=== PATIENT | female | born 1930 | race Caucasian/White ===

== ENCOUNTER 2017-01-23 09:17 | Inpatient (IN) | payer MEDICARE, OTHER ==
[2017-01-23] VITALS (8 sets, daily range): BP systolic 145–189; BP diastolic 67–78; PULSE 67–81; RESP 18–22; O2SAT 89–98
[~2017-01-23] VITALS: Wt 56.2 kg
[~2017-01-23 09:17] MED LIST: ALBU2.5V4 INHALATION; CARB1TAB14 PO; CHOL200025 PO; CRAN450T9 PO; D-MA1POW PO; FOSF3PAC PO; HYDR28.484 TOPICAL; LATA2.5D6 BOTH_EYES; LOSA100T29 PO; MELA1TAB11 PO; MEMA14CA PO; NAPR250T PO; NITR1OIN TRANSDERM; PIPE3.376 IV; POLY17PO6 PO; QUET25TA PO; QUET25TA73 PO; RIVA1PAT9 TRANSDERM; TIMO5DRO26 BOTH_EYES; [UNRECOGNIZED DRUG - CODE] IVPUSH
--- NOTE | 2017-01-23 09:23 | ED.REPORT ---
HPI-General Illness Date of Service January 23, 2017 ED Provider: Paz Washington MD The patient is an 86 year old female with history of Parkinson's, dementia, dysphagia, and hypertension, who was brought to the emergency department by EMS for altered mental status that was first noticed this morning around 0930 by her . She was last known normal at 1930 last night. She was speaking, sitting up, and responsive. She has not been able to answer questions. Her states her current status is completely different from her baseline. Medics report she did swat her arm with suctioning. She was admitted in May of 2016 for pneumonia and UTI. POLST form from 05/2016 that is DNR and another one from 09/2015 that shows full code. Nursing Notes Stated Complaint: DECREASE LOC Nursing Notes Reviewed: Yes Allergies: Coded Allergies: meperidine (Verified Allergy, Severe, Hives, 10/03/15) Contrast Media (Verified Allergy, Unknown, possible reaction, 10/03/15) gabapentin (Verified Allergy, Unknown, 10/03/15) Scheduled Carbidopa/Levodopa 25-100 mg (Carbidopa/Levodopa 25-100 mg) 1 Each Tablet 2 EACH PO BID Cholecalciferol (Vitamin D3) (Vitamin D3) 2,000 Unit Tablet 4,000 UNIT PO DAILY Cranberry Fruit (Cranberry) 450 Mg Tablet 450 MG PO BID D-Mannose (D-Mannose) 1 Gm Powder 500 MG PO DAILY Fosfomycin Tromethamine (Monurol) 3 Gm Packet 3 GM PO Q10 days Latanoprost (Latanoprost) 2.5 Ml Drops 1 GTT BOTH_EYES HS Losartan Potassium (Losartan Potassium) 100 Mg Tablet 50 MG PO BID Melatonin/Pyridoxine (Melatonin 3 mg Tablet) 1 Each Tablet 1 EACH PO HS Memantine HCl (Namenda-XR) 14 Mg Cap.spr.24 14 MG PO QAM Nitroglycerin (Nitro-Bid) 1 Gm Oint...g. 2 INCH TRANSDERM DAILY Piperacillin Sodium/Tazobactam (Zosyn 3.375 Gram Vial) 3.375 Gm Vial 3.375 GM IV every 8 hours Polyethylene Glycol 3350 (Miralax) 17 Gm Powd.pack 17 GM PO DAILY Quetiapine Fumarate (Quetiapine Fumarate) 25 Mg Tablet 12.5 MG PO HS Rivastigmine Patch (Exelon Patch) 13.3 Mg Patch 13.3 MG TRANSDERM DAILY Timolol (Betimol) 5 Ml Drops 1 DROP BOTH_EYES QAM Scheduled PRN Albuterol Neb Soln (Albuterol Neb Soln) 2.5 Mg/3 Ml Vial.neb 2.5 MG INHALATION QID PRN PRN For Shortness of Breath Enalaprilat Dihydrate (Enalaprilat Inj) 1.25 Mg/1 Ml Vial 1.25 MG IVPUSH Q6 PRN PRN IF sbp>170 Hydrocortisone (Hydrocortisone) 1 % Cream..g. 1 APPLIC TOPICAL DAILY PRN PRN skin irritation apply to site of exelon patch prn Naproxen (Naproxen) 250 Mg Tablet 250 MG PO TID PRN PRN For Pain Nitroglycerin (Nitro-Bid) 1 Gm Oint...g. 2 INCH TRANSDERM QID PRN PRN For HYPERtension Polyethylene Glycol 3350 (Miralax) 17 Gm Powd.pack 17 GM PO DAILY PRN PRN For Constipation Quetiapine Fumarate (Seroquel) 25 Mg Tablet 12.5 MG PO QID PRN PRN For Agitation General Time Seen by MD: 09:23 Chief Complaint Altered mental status Hx Obtained From: Spouse, EMS Unable to Obtain Hx: Patient condition, Mental status Arrived By: Ambulance Sudden in Onset?: No Onset Occurred: Onset unknown Symptom Duration: Since onset Recent Healthcare: No recent doctor visit, No recent hospitalization Similar Sx Previous: No Past Medical History Past Medical History Notes: CODE STATUS: DNR Past Medical History Glaucoma Parkinson's Overactive bladder Hypertension Dementia GI bleed UTI Normally on honey thick liquids only due to dysphagia Basal cell carcinoma Past Surgical History Bladder suspension Laminectomy Bilateral knee replacement Basal cell carcinoma removal Hip replacement Reports: Hysterectomy, Tonsillectomy Family History Noncontributory Smoking History Former Smoker Social History Lives at [facility] Alcohol Use: Denies alcohol use Drug Use: Denies drug use Other Social History: Good social support, , Local resident Ambulatory Status Walker Review of Systems Unable to Obtain ROS Patient condition, Mental status Physical Exam Vital Signs Vital Signs Date Time Temp Pulse Resp B/P Pulse Ox O2 Delivery O2 Flow Rate FiO2 01/23/17 10:52 69 22 155/71 95 Nasal Cannula 2 01/23/17 09:23 36.4 67 22 164/76 89 Room Air Initial VS: Reviewed ENT: Mucous membranes moist, Conjunctiva normal, No scleral icterus Neck: Supple, Non-tender, Full range of motion Abdomen / GI: Soft, No distention Extremities: No swelling Skin: Warm, Dry Alertness: Positive: Unresponsive Appearance / Presentation: Positive: Cachectic Head / Eyes: Atraumatic, Normocephalic Pupils are pinpoint Respiratory / Chest: No respiratory distress Shallow regular breathing. Shallow ineffective cough. Coarse rhonchi throughout all lung lopes. Cardiovascular: Heart rate NL Heart Sounds / Murmur: Positive: Systolic murmur present.. (III/) Upper Extremities Upper Extremity / MS: Vascular intact Skin tear on her left elbow that is appropriately dressed from custodial. Mental Status: Positive: Unresponsive Maintaining airway at this time. Pill roll tremor. Significant muscle rigidity consistent with her Parkinson's. Interpretation & Diagnostics Lab Results Interpretation Result Diagram: 01/23/17 1015 01/23/17 1015 Test 01/23/17 09:50 01/23/17 09:58 01/23/17 10:15 01/23/17 10:35 Hold Urine Received (Received) Urine Legionella pneumophilia Ag Negative (Negative) Urine Color Yellow (YELLOW) Urine Appearance Turbid (CLEAR,HAZY) Urine pH 7.0 (5.0-8.0) Urine Specific [place] 1.020 (1.003-1.035) Urine Protein 100mg/dL (NEG,TRACE) Urine Glucose (UA) Negativemg/dL (NEGATIVE) Urine Ketones Negativemg/dL (NEGATIVE) Urine Occult Blood Large (NEGATIVE) Urine Nitrite Positive (NEGATIVE) Urine Bilirubin Negative (NEGATIVE) Urine Urobilinogen Normalmg/dL (NORMAL) Urine Leukocyte Esterase Large (NEGATIVE) Urine RBC 11-50/hpf (0-2) Urine WBC >50/hpf (0-5) Urine Epithelial Cells Occasional/hpf (NONE-MOD) Urine Crystals None seen (NONE SEEN) Urine Bacteria Many/hpf (NONE-FEW) Urine Hyaline Casts None/lpf (NONE) Urine Granular Casts None seen (NONE SEEN) Urine Waxy Casts None seen (NONE SEEN) Urine Red Blood Cell Casts None seen (NONE SEEN) Urine White Blood Cell Casts None seen (NONE SEEN) Urine Mucus Present (None Seen) Urine Trichomonas None seen (NONE SEEN) Urine Yeast None (NONE SEEN) Urinalysis Comment None Urine Culture Reflexed Indicated White Blood Count 6.1th/mm3 (3.8-10.1) Red Blood Count 4.63mil/mm3 (3.90-5.20) Hemoglobin 13.8g/dL (12.0-15.6) Hematocrit 40.9% (35.0-46.0) Mean Corpuscular Volume 88.3fL (81-100) Mean Corpuscular Hemoglobin 29.8pg (27.0-35.0) Mean Corpuscular Hemoglobin Concent 33.7% (32.0-37.0) Red Cell Distribution Width 14.4% (12.3-15.4) Platelet Count 211bil/L (150-400) Neutrophils (%) (Auto) 59.2% (40-74) Lymphocytes (%) (Auto) 26.6% (14-46) Monocytes (%) (Auto) 9.4% (4-12) Eosinophils (%) (Auto) 3.5% (0-5) Basophils (%) (Auto) 1.0% (0-3) Sodium Level 139mEq/L (134-144) Potassium Level 3.9mEq/L (3.5-5.2) Chloride Level 104mEq/L (97-108) Carbon Dioxide Level 22mmol/L (18-29) Blood Urea Nitrogen 15mg/dL (8-27) Creatinine 0.51mg/dL (0.57-1.00) Estimat Glomerular Filtration Rate 164mL/min (>59) Glucose Level 103mg/dL (60-99) Calcium Level 9.1mg/dL (8.5-10.1) Total Bilirubin 0.5mg/dL (0.0-1.2) Aspartate Amino Transf (AST/SGOT) 13U/L (0-50) Alanine Aminotransferase (ALT/SGPT) 7U/L (0-32) Alkaline Phosphatase 52U/L (25-165) Troponin T < 0.010ug/L (0.0-0.011) Pro-B-Type Natriuretic Peptide 338.8pg/mL (0-738) Total Protein 6.7g/dL (6.4-8.4) Albumin 3.3g/dL (3.4-5.0) Procalcitonin 0.07ng/mL (0.00-0.08) Lactic Acid Level 1.0mmol/L (0.4-2.0) ECG Interpretation ECG Interpretation: Sinus rhythm with a rate of 59 PAC LPFB No acute ischemic changes Similar to previous taken on 06/06/16 Time: 10:22 Interpreted by: ED physician X-Ray Chest Interpretation Chest Xray Interpretation: IMPRESSION: Mild or early pneumonia likely is present at the left lung base but as noted the patient is rotated and tilted leftward and for this reason atelectasis possibly could be present instead. As discussed above the PICC line from left-sided approach has an atypical course and its exact position is not established by this study. There may be venous anomalous anatomy in this patient, and CT scanning may be warranted to determine the exact anatomy and establish whether the PICC line could possibly be in a potentially harmful position. Dictated by: Jorge Nunez M.D. on 01/23/2017 at 10:35 Interpretation / Wet Read by: Interpret - Radiologist CT Head Interpretation IMPRESSION: No acute intracranial disease process. Dictated by: Citlaly Rosa MD, PhD on 01/23/2017 at 11:35 Study: Head CT no contrast Interpretation / Wet Read by: Interpret - Radiologist Re-Eval/Medical Decision Source of Hx: Old records, EMS, Family Time of Eval: 09:37 Re-Evaluation/Progress Note: Discussed code status with her . The patient is DNR. Time of Eval: 09:45 Re-Evaluation/Progress Note: No change with Narcan. Time of Eval: 12:04 Re-Evaluation/Progress Note: The patient's condition is unchanged. Discussed plan for admission to the hospital with the patient's . He understands and agrees with plan. Consultation : Referral / Consult Name: Drew Eng MD Consulted With: Hospitalist Requested Call at: 12:05 Call Returned at: 12:39 Animal Laboratory Technician: Will see patient, Agrees with eval, Agrees with plan, Accepts admit Counseled Regarding: Diagnosis, Lab results, Need for admission Discharge & Departure Primary Impression: Altered mental status Altered mental status type: unspecified Qualified Code: R41.82 - Altered mental status, unspecified Additional Impressions: UTI (urinary tract infection) Urinary tract infection type: site unspecified Hematuria presence: with hematuria Qualified Code: N39.0 - Urinary tract infection, site not specified Pneumonia Pneumonia type: due to unspecified organism Laterality: left Lung location : lower lobe of lung Qualified Code: J18.1 - Lobar pneumonia, unspecified organism Disposition: ADMITTED TO HOSPITAL Discharge Condition All VS Reviewed: Yes Condition: Stable Referrals: OTHER,PHYSICIAN (PCP) (Family) Scribe Attestation Portions of this note were transcribed by Jackelyn Solis. I, Dr. Washington personally performed the history, physical exam and medical decision-making; I reviewed and confirmed the accuracy of the information in the transcribed note. Signed by: Sindhu Ramos,01/23/2017 at 1300. Paz Washington MD January 23, 2017 09:23 Jackelyn Solis January 23, 2017 09:30
[2017-01-23] MEDS ORDERED: 0.9% Sodium Chloride 1,000 ML IV ONE (10:11)
[2017-01-23] MEDS ORDERED: cefTRIAXone Inj 2,000 MG in Dextrose 5% Minibag Plus 50 ML IV ONE (10:15)
[2017-01-23] MEDS ORDERED: Azithromycin Inj 500 MG in Dextrose 5% w/Vial Mate 250 ML IV ONE (10:15)
[2017-01-23 10:19] LABS: APPEARANCE,URINE TURBID (CLEAR,HAZY); COLOR,URINE YELLOW (YELLOW); OCCULT BLOOD,URINE LARGE (NEGATIVE); UROBILINOGEN,URINE NORMAL (NORMAL)
[2017-01-23 10:22] LABS: EOSINOPHILS % (AUTO) 3.5 % (0-5); MONOCYTES % (AUTO) 9.4 % (4-12); Mean Corpuscular Hemoglobin 29.8 pg (27.0-35.0); Mean Corpuscular Volume 88.3 fL (81-100); NEUTROPHILS % (AUTO) 59.2 % (40-74); Platelet Count 211 bil/L (150-400)
--- NOTE | 2017-01-23 10:41 | DRSVH ---
PROCEDURE: X-RAY CHEST ONE VIEW, PORTABLE ([id number]) INDICATIONS: cough TECHNIQUE: One view of the chest was acquired. COMPARISON: [facility], CR, XR CHEST 1VW (PORTABLE), 11/16/2015, 16:43. [facility], CR, XR CHEST 1VW (PORTABLE), 03/06/2016, 10:26. [facility], CR, XR CHEST 1VW (POR TABLE), 03/28/2016, 12:29. [facility], CR, XR CHEST 1VW (PORTABLE), 06/10/2016, 8:46. [facility], CR, XR CHEST 1VW (PORTABLE), 06/06/2016, 10:02. FINDINGS: Surgical changes and devices: There is a PICC line from a left-sided approach which takes an unusual course that does not definitely overlie the expected course of the superior vena cava. The patient i s tilted and rotated leftward, above the catheter course extends towards the medial left clavicular h ead and then is vertically directed inferiorly and further rightward but then inferiorly again near t he bifurcation of the trachea. Lungs and pleura: No pleural effusions or pneumothorax. Lungs are abnormal with mild stranding of t he retrocardiac left lung and laterally. Mediastinum: Mediastinal contours appear normal. Heart size is normal. Bones and chest wall: No suspicious bony lesions. Overlying soft tissues appear unremarkable. IMPRESSION: Mild or early pneumonia likely is present at the left lung base but as noted the patient is rotated and tilted leftward and for this reason atelectasis possibly could be present instead. As discussed above the PICC line from left-sided approach has an atypical course and its exact positi on is not established by this study. There may be venous anomalous anatomy in this patient, and CT s chio may be warranted to determine the exact anatomy and establish whether the PICC line could pos sibly be in a potentially harmful position. Dictated by: Jorge Nunez M.D. on 01/23/2017 at 10:35 Approved by: Jorge Nunez M.D. on 01/23/2017 at 10:39
[2017-01-23 10:56] LABS: TROPONIN T < 0.010 ug/L (0.0-0.011)
--- NOTE | 2017-01-23 11:38 | DRSVH ---
PROCEDURE: CT BRAIN WITHOUT CONTRAST ([id number]) INDICATIONS: altered mental status TECHNIQUE: Noncontrast 4.5 mm thick angled axial sections acquired from the foramen magnum to the vertex, with c oronal reformats. COMPARISON: [facility], CT, CT BRAIN WO CON, 03/28/2016, 11:32. [facility], CT, BRAIN W/O CONTRAST, 03/31/2015, 17:04. FINDINGS: Image quality: Excellent. CSF spaces: Basal cisterns are patent. No extra-axial fluid collections. The ventricles are symmet mikala in size and shape. Brain: No intracranial bleeds or masses. There is cerebral volume loss for age, with resultant vent ricular and sulcal prominence. There are periventricular and deep white matter chronic small vessel ischemic changes. There is intracranial internal carotid artery atherosclerosis. Skull and face: Calvarium and visualized facial bones appear intact, without suspicious lesions. Sinuses: Visualized sinuses and mastoids are clear. IMPRESSION: No acute intracranial disease process. Dictated by: Citlaly Rosa MD, PhD on 01/23/2017 at 11:35 Approved by: Citlaly Rosa MD, PhD on 01/23/2017 at 11:37
[2017-01-23] MEDS ORDERED: MEMA10TA20 PO (13:11)
[2017-01-23] MEDS ORDERED: D-MA1POW PO (13:11)
[2017-01-23] MEDS ORDERED: CARB1TAB14 PO (13:11)
[2017-01-23] MEDS ORDERED: METO25TA6 PO (13:11)
[2017-01-23] MEDS ORDERED: ASPI-973 PO (13:11)
[2017-01-23] MEDS ORDERED: CITA10TA9 PO (13:11)
[2017-01-23] MEDS ORDERED: Ondansetron 2 mg/mL 2 mL Inj IVPUSH PRN (14:00)
[2017-01-23] MEDS ORDERED: cefTRIAXone Inj 1,000 MG in Dextrose 5% Minibag Plus 50 ML IV SCH (14:00)
[2017-01-23] MEDS ORDERED: Polyethylene Glycol (PEG) 17 Gm Powder PO PRN (14:00)
[2017-01-23] MEDS ORDERED: Azithromycin Inj 500 MG in Dextrose 5% w/Vial Mate 250 ML IV SCH (14:33)
[2017-01-23] MEDS: 0.9% Sodium Chloride 1,000 ML IV SCH (14:49)
--- NOTE | 2017-01-23 15:32 | PCM.HPMED ---
Subjective Date of Service January 23, 2017 Primary Provider: Admitting Physician: Drew Eng MD Primary Care Physician: Traci Solis MD Attending Physician: Drew Eng MD Admit Status: From the Emergency Department, Full Admit, Admit to [facility] Team, [facility] Telemetry Chief Complaint: Pneumonia and urinary tract infection History of Present Illness: History is obtained from , steph. Patient is an 86-year-old female progressive debilitating consist disease and dementia. She has suffered progressive dysphagia and had difficulties with aspiration. She was recently admitted with an aspiration pneumonia. The patient also had a Proteus urine tract infection. Ultimately she was discharged to [facility] and has had a lot of difficulty keeping down adequate fluids. [facility]. She has had a stepwise deterioration was several months. The patient has become more confused and lethargic last 2 days. No reported fevers or chills. She was brought back to the emergency room and found to have evidence of probable recurrent urinary tract infection as well as possible aspiration. She really appears to be unable to drink anything she has not had her Sinemet for a day and a half and appears to be very stiff. She did have palliative care intervention last visit is DNR/DNI. Today when asked if she would want a temporary tube placed for administration of oral medication such as Sinemet he declined. We spent a lot of time focusing on the importance of comfort and the high probability of . He does wish to try IV fluids and antibiotics would cover for aspiration and possible recurrent urinary tract infection overnight. No other history is available. Review of Systems: Review of systems is not obtainable due to her mental status. Allergies Coded Allergies: meperidine (Verified Allergy, Severe, Hives, 10/03/15) Contrast Media (Verified Allergy, Unknown, possible reaction, 10/03/15) gabapentin (Verified Allergy, Unknown, 10/03/15) Home Medications Carbidopa/Levodopa 25-100 mg (Carbidopa/Levodopa 25-100 mg) 1 Each Tablet 2 EACH PO BID Cholecalciferol (Vitamin D3) (Vitamin D3) 2,000 Unit Tablet 4,000 UNIT PO DAILY Cranberry Fruit (Cranberry) 450 Mg Tablet 450 MG PO BID D-Mannose (D-Mannose) 1 Gm Powder 500 MG PO DAILY Fosfomycin Tromethamine (Monurol) 3 Gm Packet 3 GM PO Q10 days Latanoprost (Latanoprost) 2.5 Ml Drops 1 GTT BOTH_EYES HS Losartan Potassium (Losartan Potassium) 100 Mg Tablet 50 MG PO BID Melatonin/Pyridoxine (Melatonin 3 mg Tablet) 1 Each Tablet 1 EACH PO HS Memantine HCl (Namenda-XR) 14 Mg Cap.spr.24 14 MG PO QAM Nitroglycerin (Nitro-Bid) 1 Gm Oint...g. 2 INCH TRANSDERM DAILY Piperacillin Sodium/Tazobactam (Zosyn 3.375 Gram Vial) 3.375 Gm Vial 3.375 GM IV every 8 hours Polyethylene Glycol 3350 (Miralax) 17 Gm Powd.pack 17 GM PO DAILY Quetiapine Fumarate (Quetiapine Fumarate) 25 Mg Tablet 12.5 MG PO HS Rivastigmine Patch (Exelon Patch) 13.3 Mg Patch 13.3 MG TRANSDERM DAILY Timolol (Betimol) 5 Ml Drops 1 DROP BOTH_EYES QAM Scheduled PRN Albuterol Neb Soln (Albuterol Neb Soln) 2.5 Mg/3 Ml Vial.neb 2.5 MG INHALATION QID PRN PRN For Shortness of Breath Enalaprilat Dihydrate (Enalaprilat Inj) 1.25 Mg/1 Ml Vial 1.25 MG IVPUSH Q6 PRN PRN IF sbp>170 Hydrocortisone (Hydrocortisone) 1 % Cream..g. 1 APPLIC TOPICAL DAILY PRN PRN skin irritation apply to site of exelon patch prn Naproxen (Naproxen) 250 Mg Tablet 250 MG PO TID PRN PRN For Pain Nitroglycerin (Nitro-Bid) 1 Gm Oint...g. 2 INCH TRANSDERM QID PRN PRN For HYPERtension Polyethylene Glycol 3350 (Miralax) 17 Gm Powd.pack 17 GM PO DAILY PRN PRN For Constipation Quetiapine Fumarate (Seroquel) 25 Mg Tablet 12.5 MG PO QID PRN PRN For Agitation PMH Parkinson's disease Dementia Progressive dysphagia Hypertension Aspiration pneumonia Urinary tract infection Glaucoma Surgical History Bladder suspension Family History Not obtainable Social History Occupation: retired Hx Alcohol Use: No Hx Substance Use: No Hx Tobacco Use: Yes Smoking Status: Former Smoker [facility] Exam Vital Signs Vital Sign - Last Date Time Temp Pulse Resp B/P Pulse Ox O2 Delivery O2 Flow Rate FiO2 01/23/17 14:53 37.6 78 18 171/67 98 Nasal Cannula 2.00 Exam Vision is chronically ill and contorted. She has involuntary muscle contractions of her neck and arms and legs. She is moaning. She appears cachectic. Normal skull. Emaciated Normal nose and ears. Anicteric sclera, symmetric pupils Oropharynx is unremarkable, no facial droop. Oropharynx is extremely dry. Her lips are dry. She has decreased skin turgor Neck is supple, normal thyroid. No adenopathy. Lungs are clear, normal effort rate. Heart is regular without murmur gallop or rub. Abdomen soft, nondistended or tender. Extremities are free of pedal edema. She has multiple ecchymosis over her arms and legs and a left arm PICC Good radial and pedal pulses. Skin is notable for being dry having any ecchymosis.. Joints are grossly normal. Cranial nerves are grossly normal. Motor strength is normal in all extremities. Normal muscular tone. She has cogwheeling and contractions of both arms and flexion. She also has a resting tremor of both upper extremities Lab and Diagnostics Result Diagram: 01/23/17 1015 01/23/17 1015 X-Rays, CTs and MRIs Brain CT is negative Chest x-ray: IMPRESSION: Mild or early pneumonia likely is present at the left lung base but as noted the patient is rotated and tilted leftward and for this reason atelectasis possibly could be present instead. As discussed above the PICC line from left-sided approach has an atypical course and its exact position is not established by this study. There may be venous anomalous anatomy in this patient, and CT scanning may be warranted to determine the exact anatomy and establish whether the PICC line could possibly be in a potentially harmful position. Dictated by: Jorge Nunez M.D. on 01/23/2017 at 10:35 Approved by: Jorge Nunez M.D. on 01/23/2017 at 10:39 Assessment & Plan 1. Probable aspiration pneumonia, POA. We will resume Zosyn 2. Probable recurrent urinary tract infection with recent Proteus infection. POA. Zosyn and await cultures. 3. Volume depletion, POA. IV fluids 4. Progressive dysphagia, POA. Initial discussions indicated that the family will decline tube feeds. We will have ongoing local care discussions. She does appear to be suffering have pain relating to her poorly controlled Parkinson's. We will use morphine as needed for pain. 5. Parkinson's disease, poorly controlled. Inability to take medications. POA. Morphine as needed for pain. We will resume Sinemet when she appears more alert if able. 6. Septic encephalopathy, POA. We will follow clinically. Continue doxazosin was 7. Dementia, POA. We will follow clinically. 8. Hypertension, POA. We will follow clinically and hold medications for now. Patient is DNR/DNI. The patient's does want IV fluids and antibiotics. I believe that she understands the probable futility of her current medical situation given her progress with dysphagia and overall general deterioration. I believe that he is considering comfort care. She was very open to boluses of IV morphine as needed for comfort at this time. If she fails to improve overnight I believe he will accept placing her on comfort care. Inpatient status with a length of stable over 2 nights anticipated. Resuscitation Status: DNR/DNI:Do Not Resuscitate/Intubate Time spent 40 minutes Drew Eng MD January 23, 2017 15:32
--- NOTE | 2017-01-23 17:00 | NUR ---
Admit to PCC Pt admitted to PCC room 2024 around 1500. Pt was brought up to [facility] and moved to bed 3 person total assist. Pt has Parkinson's disease and dementia and is in a wheelchair at baseline. Per her she is still able to sit, converse and occasionally feed herself. Pt was administered IV NS @100mls/hr and started on IV antibiotics. Report was received from ER Nurse. Pt has pre-existing PICC line in left arm, per her [facility].
[2017-01-23] MEDS: Piperacillin-Tazo 3.375 Gm Inj 3.375 GM in Dextrose 5% Minibag Plus 50 ML IV SCH (17:49)
[2017-01-23] MEDS: Heparin 5,000 Unit/mL Inj SUBQ SCH (17:52)
--- NOTE | 2017-01-23 18:48 | NUR ---
PICC Pt pre-existing PICC line examined by IV therapy. They will examine xrays to confirm placement. PICC line used in ER and shelter for fluid replacement.
[2017-01-24] MEDS: 0.9% Sodium Chloride 1,000 ML IV SCH ×3 (00:36→21:00)
[2017-01-24] MEDS: Heparin 5,000 Unit/mL Inj SUBQ SCH ×3 (00:36→16:34)
[2017-01-24] MEDS: Piperacillin-Tazo 3.375 Gm Inj 3.375 GM in Dextrose 5% Minibag Plus 50 ML IV SCH ×3 (00:37→16:34)
[2017-01-24 03:14] VITALS: BP 166/79; PULSE 98; RESP 20; O2SAT 94
[2017-01-24 05:32] LABS: BASOPHILS % (AUTO) 0.8 % (0-3); EOSINOPHILS % (AUTO) 1.9 % (0-5); MONOCYTES % (AUTO) 6.2 % (4-12); Mean Corpuscular Volume 88.3 fL (81-100); Platelet Count 165 bil/L (150-400)
--- NOTE | 2017-01-24 06:05 | NUR ---
Mental Status Patient somnolent and responsive to strong repeated stimuli only over night. While RN was drawing AM labs, patient roused briefly and was able to ask/answer a few questions. When asked if she needs anything, patient replied "Chap stick, lots of it;" and stated "I sleep with my mouth open." Frequent oral care over night, including mouth moisturizer to patient's dry lips. Patient's daughter remains at bedside. Continue to monitor.
[2017-01-24 08:49] VITALS: BP 159/82; PULSE 82; RESP 18; O2SAT 93
--- NOTE | 2017-01-24 11:52 | NUR ---
Social Work Note: Initial Assessment Data& Assessment: EMR reviewed. SW met with pt, pt and pt daughter at bedside to discuss discharge planning, SW role explained. Traci Granados is a 86 year old female admitted on 01/23/2017 for altered mental status, pneumonia and UTI. Pt has Medicare and [employer] [facility] [place] Supp[employer] insurance coverage. Pt sees Traci Solis MD for primary care. Pt is a LTC pt at [facility] where she receives help with bathing, dressing, toileting, medications and occasional feeding. Access provided and SW spoke with Mai in admissions regarding pt return when medically ready. Pt has a diagnosis of Parkinsons and uses a wheelchair for ambulation at baseline. Pt informed SW that pt is able to ambulate 10-12ft at a time (usually x2) with a 4WW with a seat and pt following behind her with a belt. Pt informed SW that since pt became a LTC pt at [facility], she has not been receiving therapies so he tries to ambulate her himself. Pt does not have LTC insurance or VA benefits. Pt has DPOA/Advance Directive paperwork completed, SW requested a copy for her chart when possible. SW also requested [facility] search for and fax a copy to [facility] if they have a copy on file at their facility. Pt reports preference for wheelchair van transport for pt at time of discharge to avoid any major transportation costs. Pt explained that he is thinking about trying a different facility in the community for pt to receive care at. SNF list provided for preferences. Pt , pt and pt daughter will discuss options and let SW if they change their minds about pt returning to [facility]. Pt family anxious about potential feeding tube for pt and will discuss this concern with the MD. Pt and pt family deny any needs at this time. SW to continue to follow for nutritional and discharge planning needs. Plan: Anticipated discharge back to [facility] when medically ready vs. a different SNF in the community. Pt and pt family deny any needs at this time. SW to continue to follow for nutritional and discharge planning needs. ROMAN Carrera Addendum: 01/24/17 at 1212 by JONATHAN GARCÍA Amended: Links added.
--- NOTE | 2017-01-24 12:30 | DRSVH ---
PROCEDURE: X-RAY CHEST ONE VIEW, PORTABLE ([id number]) INDICATIONS: PICC line placement/Follow up for Pneumonia TECHNIQUE: One view of the chest was acquired. COMPARISON: [facility], CR, XR CHEST 1VW (PORTABLE), 01/23/2017, 10:09. FINDINGS: Surgical changes and devices: A left PICC is present, the tip of which is projected over the cavoatri al junction. Lungs and pleura: No pleural effusions or pneumothorax. Mild left basilar radiopacities are redemons trated. Mediastinum: Mediastinal contours appear normal. Heart size is normal. Bones and chest wall: No suspicious bony lesions. Overlying soft tissues appear unremarkable. IMPRESSION: 1. Persistent left basilar radiopacities. Dictated by: Deb Arevalo M.D. on 01/24/2017 at 12:26 Approved by: Deb Arevalo M.D. on 01/24/2017 at 12:28
--- NOTE | 2017-01-24 14:01 | PCM.PNMED ---
Subjective Date of Service January 24, 2017 Subjective Traci Granados is an 86-year-old woman with past medical history significant for end-stage Parkinson disease, recurrent aspiration pneumonia, and recurrent Proteus UTI was currently under treatment for recurrent aspiration pneumonia. Hospital day #2. Overnight: No acute events. Today: The patient is minimally communicative. Discussion with the patient's and daughter was conducted by myself and Dr. Lakhani. The patient's is considering the options of various tube feedings the patient improves. At this time he does not want to proceed with a PEG tube, however he would like to proceed with an NG tube is a temporary measure while more family members gather. Continue with IV fluids and antibiotics and medications. When the patient was asked if she would agree to a nasogastric tube she concurred. The remaining review of systems is negative except as noted above. Exam Vital Signs Vital Sign - Last Date Time Temp Pulse Resp B/P Pulse Ox O2 Delivery O2 Flow Rate FiO2 01/24/17 08:50 Supplement Oxygen 01/24/17 08:49 37.0 82 18 159/82 93 0.50 Intake and Output 01/23/17 01/23/17 01/24/17 Cumulative From/Thru 15:00 23:00 07:00 01/23/17 09:23 - 01/24/17 06:31 Intake Total 2000 ml 520 ml 1034 ml 3554 ml Output Total 550 ml 550 ml 1100 ml Balance 2000 ml -30 ml 484 ml 2454 ml Intake Oral 0 ml 0 ml 0 ml IV Total 2000 ml 520 ml 1034 ml 3554 ml Output Urine Total 550 ml 550 ml 1100 ml # Bowel Movements 1 0 1 Exam Patient appears chronically ill and contorted. She has involuntary muscle contractions of her neck and arms and legs. She appears cachectic. Normal skull. Emaciated Normal nose and ears. Anicteric sclera, symmetric pupils Oropharynx is unremarkable, no facial droop. Oropharynx is extremely dry. Her lips are dry. She has decreased skin turgor Neck is supple, normal thyroid. No adenopathy. Lungs are clear, normal effort rate. Heart is regular without murmur gallop or rub. Abdomen soft, nondistended or tender. Extremities are free of pedal edema. She has multiple ecchymosis over her arms and legs and a left arm PICC Good radial and pedal pulses. Skin is notable for being dry having any ecchymosis. Joints are grossly normal. Cranial nerves are grossly normal.. She has cogwheeling and contractions of both arms and flexion. She also has a resting tremor of both upper extremities IVs and Medications Medications Reviewed: Medications were reviewed in detail Lab and Diagnostics Result Diagram: 01/24/1752301/24/17523 X-Rays, CTs and MRIs CT BRAIN WITHOUT CONTRAST IMPRESSION: No acute intracranial disease process. Dictated by: Citlaly Rosa MD, PhD on 01/23/2017 at 11:35 X-RAY CHEST ONE VIEW, PORTABLE IMPRESSION: 1. Persistent left basilar radiopacities. Dictated by: Deb Arevalo M.D. on 01/24/2017 at 12:26 Assessment & Plan Traci Granados is an 86-year-old woman with past medical history significant for end-stage Parkinson disease, recurrent aspiration pneumonia, and recurrent Proteus UTI was currently under treatment for recurrent aspiration pneumonia. Hospital day #2. 1. Probable aspiration pneumonia, POA. -We will continue Zosyn, antibiotic day 2. -Likely this will be a recurrent problem for the patient due to her severe Parkinson's disease. 2. Probable recurrent urinary tract infection with recent Proteus infection. POA. -Continue Zosyn and await cultures. 3. Volume depletion, POA. -Continue IV fluids, as well as tube feeds 4. Progressive dysphagia, POA. -Initial discussions indicated that the family will decline tube feeds. -However, based upon today's discussion with the patient's and daughter they are willing to proceed with an NG tube is a temporary measure. -NG tube will be placed, tube feeds per dietary. 5. Parkinson's disease, poorly controlled. Inability to take medications. POA. -Morphine as needed for pain. -We will resume via NG tube Sinemet 6. Septic encephalopathy, POA. -We will follow clinically, although difficult to assess due to patient's underlying Parkinson's disease. 7. Dementia, POA. -We will follow clinically. 8. Hypertension, POA. -We will follow clinically and hold medications for now. 9. Goals of care -Positive care consultation -As discussed above CODE STATUS: DNR/DNI. Disposition: Dissipate patient will be in-house for 1-2 more days as she is either treated for her aspiration pneumonia or she is transitioned to comfort care and/or hospice. Pain Evaluation: Adequate Pain Control GI Prophylaxis: Proton Pump Inhibitor VTE Prophylaxis: Sub-Q Heparin (Unfractionated) Resuscitation Status: DNR/DNI:Do Not Resuscitate/Intubate Attending Statement Patient seen and examined with the resident. Chart reviewed and agree with the above. Macy Orta DO January 24, 2017 14:01 Armando Lakhani MD January 24, 2017 19:12
--- NOTE | 2017-01-24 14:15 | NUR ---
NUTRITION ASSESSMENT: ASSESS:86 YO female admitted with recurrent aspiration pneumonia, UTI, volume depletion, progressive dysphagia. Patient's spouse understands the futility of her current medical situation given her progress with dysphagia and overall general deterioration; however, he would like to proceed with NG enteral feeding until family discussions in conjunction with the palliative team determine goals of care. PMHx:Parkinson's disease, dementia, progressive dysphagia, HTN, aspiration pneumonia, UTI, glaucoma. DIET:NPO. LABS: Cr 0.52, Glu 100, Alb 3.0. MEDICATIONS: Reviewed. NUTRITION FOCUSED PHYSICAL ASSESSMENT: GI symptoms / stool: BM x 1 (01/23).Gm: 9 Skin Integrity: No issues reported. ANTHROPOMETRICS: Current Wt: 51.4 kgBMI: 18.3 kg/m2. IBW: 59.1 kg (87% IBW) ESTIMATED NEEDS (UNDERWEIGHT): Calories: 1542 - 1799 kcal (30 - 35 kcal / kg BW) Protein: 62 - 77 g protein (1.2 - 1.5 g / kg BW) Fluid: Approx. 1285 mL (25 mL / kg BW) NUTRITION DIAGNOSIS: 1)Inadequate oral intake related to inability to consume sufficient energy, as evidenced by progressive dysphagia, requirement for enteral feeding. INTERVENTION: 1) Recommend initiate Jevity 1.5 at 10 ml/hr x 12 hr to mitigate refeeding risk. Once tolerance established, recommend advance 5 ml every 8 hr. to goal rate 45 mL/hr. Enteral feeding at goal will provide 1553 kcal, 66 g protein, sufficient to meet 100% nutrient needs. 2) Flush dose 40 mL H2O every 4 hr will meet 100% fluid needs. MONITOR/EVALUATE: Enteral feeding start / advance / tolerance, labs, GI/nutrition status. Follow up per high nutrition risk guidelines.
[2017-01-24] MEDS ORDERED: Sodium Chloride LOK Flush 10 mL Syringe IVFLUSH PRN ×2 (16:05)
[2017-01-24 16:29] VITALS: BP 175/78; PULSE 90; RESP 18; O2SAT 95
[2017-01-24 17:30] VITALS: BP 180/92
[2017-01-24] MEDS ORDERED: Labetalol 5 mg/mL 4 mL Inj IVPUSH ONE (17:35)
--- NOTE | 2017-01-24 18:34 | NUR ---
Attempted NG tube/BP Attempted twice to place NG tube for patient this afternoon per MD orders and was unsuccessful. Meet resistance during attempts, Pts. dysaphia also made it difficult to place as Pt. could not swallow as well as not able to tuck her neck down. MD was made aware. Pts. blood pressure at 1630 was 175/78 and Pt. denied CP, light headedness or dizziness. Rechecked BP at 1730 and it was 180/92, again Pt. denied CP, light headedness or dizziness. MD was made aware. Labetalol once IV push 10mg (2mL) was ordered and administered at about 1815 with BP at 175/73 prior to administration of medication. Rechecked BP at ~1835 and BP was 136/71. Will continue to monitor.
[2017-01-24 20:10] VITALS: BP 139/68; PULSE 82; RESP 20; O2SAT 95
[2017-01-24] MEDS: Pantoprazole 4 mg/mL 10 mL Inj IVPUSH SCH (20:15)
--- NOTE | 2017-01-24 21:19 | NUR ---
Transfer Received transfer orders for patient to move to [facility]. Report called to Giovani RIOS at 2029. Patient transferred in her bed at 2114. NS running at 80, SpO2 96% on room air. Javi remains at bedside.
[2017-01-25] MEDS: Heparin 5,000 Unit/mL Inj SUBQ SCH ×3 (01:20→16:40)
[2017-01-25] MEDS: Piperacillin-Tazo 3.375 Gm Inj 3.375 GM in Dextrose 5% Minibag Plus 50 ML IV SCH ×3 (01:20→16:41)
--- NOTE | 2017-01-25 05:18 | NUR ---
Alertness When Pt transferred and arrived to room 3007 she was half asleep and it was difficult to hold her attention. A few hour later Pt has been awake, alert, and keeping her eyes open. Pt spontaneously talking to staff when we enter the room, Pts speech is difficult to understand.
[2017-01-25 06:20] VITALS: BP 167/72; PULSE 76; RESP 18; O2SAT 94
[2017-01-25] MEDS: 0.9% Sodium Chloride 1,000 ML IV SCH ×2 (09:05→15:12)
[2017-01-25] MEDS: Pantoprazole 4 mg/mL 10 mL Inj IVPUSH SCH (09:05)
[2017-01-25 10:12] LABS: EOSINOPHILS % (AUTO) 3.4 % (0-5); MONOCYTES % (AUTO) 9.3 % (4-12); Mean Corpuscular Hemoglobin 29.3 pg (27.0-35.0); Mean Corpuscular Volume 87.7 fL (81-100); NEUTROPHILS % (AUTO) 65.6 % (40-74); Platelet Count 154 bil/L (150-400)
[2017-01-25] MEDS ORDERED: TPN Per Pharmacist XX ONE (10:30)
[2017-01-25 10:34] LABS: Magnesium 1.7 mg/dL (1.6-2.6)
--- NOTE | 2017-01-25 10:53 | NUR ---
[facility] signed
--- NOTE | 2017-01-25 11:47 | PCM.PNMED ---
Subjective Date of Service January 25, 2017 Subjective patient was somnolent, didn't respond to verbal, but responded to painful stimuli breathing comfortably family-/daughter consulted, confirmed code status, as per patient yesterday, wishes temporary NG feeding but no permanent feeding attempted NG insertion but failed. plan for insertion by radiology tomorrow discussed about TPN until securing NG, family agreed. Exam Vital Signs Vital Sign - Last Date Time Temp Pulse Resp B/P Pulse Ox O2 Delivery O2 Flow Rate FiO2 01/25/17 06:20 36.7 76 18 167/72 94 Room Air 01/24/17 08:49 0.50 Intake and Output 01/24/17 01/24/17 01/25/17 Cumulative From/Thru 15:00 23:00 07:00 01/23/17 09:23 - 01/25/17 06:41 Intake Total 1069 ml 0 ml 4623 ml Output Total 650 ml 650 ml 2400 ml Balance 419 ml -650 ml 2223 ml Intake Oral 0 ml 0 ml 0 ml IV Total 1069 ml 4623 ml Output Urine Total 650 ml 650 ml 2400 ml # Bowel Movements 0 1 Exam Elderly female cachectic NAD, comfortably laying down on the bed no JVD, MMM, no LAD RRR, nl s1, s2 no mrg CTAB, no w,c S,ND,NT,normoactive BS+ warm, no edema, pulses 2/2 IVs and Medications Medications Reviewed: Medications were reviewed in detail Lab and Diagnostics Result Diagram: 01/25/17 0940 01/25/17 0940 X-Rays, CTs and MRIs CT BRAIN WITHOUT CONTRAST IMPRESSION: No acute intracranial disease process. Dictated by: Citlaly Rosa MD, PhD on 01/23/2017 at 11:35 X-RAY CHEST ONE VIEW, PORTABLE IMPRESSION: 1. Persistent left basilar radiopacities. Dictated by: Deb Arevalo M.D. on 01/24/2017 at 12:26 Assessment & Plan Traci Granados is an 86-year-old woman with past medical history significant for end-stage Parkinson disease, recurrent aspiration pneumonia, and recurrent Proteus UTI was currently under treatment for recurrent aspiration pneumonia. Hospital day #2. 1. Probable aspiration pneumonia, POA. -We will continue Zosyn, antibiotic day3 -Likely this will be a recurrent problem for the patient due to her severe Parkinson's disease. 2. Probable recurrent urinary tract infection with recent Proteus infection. POA. -Continue Zosyn and await cultures. 3. Volume depletion, POA. -Continue IV fluids, as well as tube feeds 4. Progressive dysphagia, POA. -NG tube tomorrow, start TPN today, 5. Parkinson's disease, poorly controlled. Inability to take medications. POA. -Morphine as needed for pain. -We will resume via NG tube Sinemet 6. Septic encephalopathy, POA. -We will follow clinically, although difficult to assess due to patient's underlying Parkinson's disease. 7. Dementia, POA. -We will follow clinically. 8. Hypertension, POA. -We will follow clinically and hold medications for now. 9. Goals of care -explained natural course of PD, recurrent aspiration PNA, appreciate further discussion with palliative care about hospice, family is opened to it. CODE STATUS: DNR/DNI, no permanent feeding. Disposition:appreciate palliative care service tomorrow, plan to observe with abx, nutrition via NG/TPN, patient seems to be good candidate for hospice. GI Prophylaxis: Proton Pump Inhibitor VTE Prophylaxis: Sub-Q Heparin (Unfractionated) Resuscitation Status: DNR/DNI:Do Not Resuscitate/Intubate Time spent 35min Ashok Hansen MD January 25, 2017 11:47
--- NOTE | 2017-01-25 11:55 | NUR ---
Transfer of care Patient care transferred to [facility]. Report given , patient resting with family at bedside and call light within reach.
--- NOTE | 2017-01-25 12:01 | PCM.PHAPRO ---
Progress Pneumonia and urinary tract infection TPN #1 INDICATION: Severe dysphagia associated with end-stage Parkinson Dz I. Fluid Status/VS Euvolemic with NS running at 100mL/hr p/ 1600mL/day of ~ 1/2 NS equivalent TPN Stop NS II. Chemistry Mild hypokalemia, otherwise WNL and without significant trends III. Glucose Control Mild elevation of fasting BG (100-110) a/ Initiate with 5 units (bag IV. Substrate and Misc Will initiate TPN with estimated ~ 40% of needs and await recommendations from Clinical Supervisor [employer] PARENTERAL NUTRITION ORDERS 1 25-Jan-17 Standard Hang Time: 2100 Substrates Total kcal: 690 AMINO ACIDS 25 g DEXTROSE 100 g Total Volume (mL): 1600 LIPIDS 25 g Sterile Water for Injection QS mL To Infuse Over (hrs): 24 Total Volume 1600 mL At at a rate of (mL/hr): 67 Additives Sodium Chloride 60 mEq "typical" daily requirements Sodium Acetate 40 mEq Sodium 50-120mEq Potassium Chloride 40 mEq Potassium 60-120mEq Potassium Phosphate 20 mEq Phosphate 20-40mEq Calcium Gluconate 9 mEq Magnesium 8-32mEq Magnesium Sulfate 12 mEq Calcium 9-22mEq Acetate* 80-120mEq Chloride* 80-120mEq Regular Insulin 5 units *Depending on acid-base status Famotidine mg Multivitamins 1 std dose Insulin Regimen Trace Elements 1 std dose none Thiamine mg Regular Low Intensity Subcut Folic Acid mg Regular Medium Intensity Subcut Ascorbic Acid mg Regular High Intensity Subcut Regular Insulin Infusion Other: David Kim S Pharm D January 25, 2017 12:01
[2017-01-25] MEDS ORDERED: KCl 20 mEq/100 mL(CENTRAL) 20 MEQ in IV Premix 1 EACH IV ONE (12:05)
[2017-01-25 13:03] VITALS: BP 177/80; PULSE 60; RESP 18; O2SAT 97
--- NOTE | 2017-01-25 14:56 | NUR ---
decorticate pt's legs are becoming stiff and difficult to reposition. pillows are placed under pressure points and between legs. will monitor with Q2 turns
[2017-01-25] MEDS ORDERED: Magnesium Sulf 2 Gm/50mL Water 2 GM in IV Premix 1 EACH IV ONE (15:25)
[2017-01-25] MEDS ORDERED: Potassium Chloride Inj 30 MEQ in Dextrose 5% 500 ML IV ONE (15:25)
[2017-01-25 20:11] VITALS: BP 185/88; PULSE 68; RESP 20; O2SAT 97
[2017-01-25] MEDS: Total Parenteral Nutrition 1 BAG IV SCH (20:22)
[2017-01-26] MEDS: Piperacillin-Tazo 3.375 Gm Inj 3.375 GM in Dextrose 5% Minibag Plus 50 ML IV SCH ×3 (00:58→16:40)
[2017-01-26] MEDS: Heparin 5,000 Unit/mL Inj SUBQ SCH ×3 (00:58→16:39)
[2017-01-26 04:22] VITALS: BP 172/73; PULSE 59; RESP 18; O2SAT 95
[2017-01-26 06:10] LABS: BASOPHILS % (AUTO) 0.9 % (0-3); MONOCYTES % (AUTO) 9.8 % (4-12); Mean Corpuscular Hemoglobin 29.9 pg (27.0-35.0); Mean Corpuscular Volume 87.6 fL (81-100); NEUTROPHILS % (AUTO) 63.1 % (40-74); Platelet Count 158 bil/L (150-400)
[2017-01-26 06:25] LABS: Magnesium 2.3 mg/dL (1.6-2.6); Phosphorus 3.1 mg/dL (2.5-4.9)
--- NOTE | 2017-01-26 06:38 | NUR ---
Decreased LOC Pt significantly less interactive and alert tonight. My prior shift with Pt she was alert, eyes open at times, and conversing. Tonight Pt has not opened her eyes once, only responds to abrupt stimuli, and is minimally verbal. Pt was noted to have heavy raspy breathing at beginning of shift. Pt was given morphine with good relief, Pt breathing more easy rest of shift.
[2017-01-26] MEDS: Pantoprazole 4 mg/mL 10 mL Inj IVPUSH SCH (08:44)
--- NOTE | 2017-01-26 08:48 | PCM.CONPAL ---
Date of Service January 26, 2017 Date of Hospital Admission: January 23, 2017 at 12:54 Date of Palliative Consult: January 26, 2017 Requesting Provider: Ashok Hansen MD Reason Palliative Care Consult: Goals of Care Discussion, Hospice Referral & Discussion Hospital Unit @time of consult: Medical/Pediatric Care (room 3007) Palliative Care Recommendation Summary of palliative recommendations: -Symptom management (Pain/other): adequate symptomatic control at this time. Continue per hospitalist team -DPOA/Advanced Directives/POLST: 1. Capacity: pt no longer has capacity to make her own healthcare decisions due to advanced Parkinson's disease. Her Javi is her designated decision maker. He is making decisions with the assistance of his two adult children: son José Luis and daughter Kathy. 2. Code Status: DNR/DNI 3. POLST, on 06/10/16 Dr. Sanders met with family and helped create a POLST that said: DNR/DNI/limited interventions, antibiotic usage okay, brief trial of artificial nutrition possible. Copies appended to her chart and kept in the palliative office, and a copy given to her family members as well. This May 2016 POLST is not on her chart this admission. Family conference team meeting (FCTM): Present were: Dr. Onofre, Javi, Son José Luis, Dtr Kathy 1. Dr. Onofre went over Traci's current condition of recurrent aspiration of her own secretions/saliva, the pneumonia that resulted from this problem, that her dysphagia is progressive and directly related to evolving and worsening Parkinson's, and that aspiration is not a reversible problem. If Traci survives this aspiration pneumonia, there will be future aspiration pneumonias that are unavoidable, even if she has a permanent feeding tube placed in her stomach (PEG ). Dr. Onofre explained risks and benefits of PEG placement in people with end- stage Parkinson's Disease. She provided 3 patient handouts on PEG tubes ( informational) and PEG tube studies done nationwide that do not show benefit for demented or end-stage degenerative or neurological diseases. She answered questions after counseling. 2. Family understanding of disease process: Javi realizes that his 's illness is progressive and that she will from it. He just has a difficult time letting go of continuing to try to "fix her." He is a loyal and spends all day at [facility] with his , helping to attend to all her needs, and feeding her. He reads poetry, books and scripture to her. He says she "loves to eat" and sometimes eats "100% of her food and then some." This hasn't been happening recently though. He says she can smile at people and if they speak to her, sometimes she'll speak back a few words. She can hold herself upright in a W/C without support, but needs assistance in all ADLs. José Luis and Kathy readily accept that Traci is not getting quality in her life on her good days at the facility. They are able to see how hard this is for their father to prepare himself for a life without Traci in it. When she dies, his loss will be great. He doesn't have many activities except those centered around her. 3. At this point, the family informs Dr. Onofre that Traci had told them she didn't want a permanent feeding tube. They didn't know why, but that is why Javi approved of the NGT placement today. Javi hopes that Traci will recover from her aspiration pneumonia and UTI and be able to eat like she ate at [facility]. That she will be back at her baseline. Dr. Onofre explains that the NGT can not stay in once Traci is discharged. The family is surprised at this news. They ask about whether an NGT is accepted at a step-down acute care center like [facility] (which is near Kathy's home). Dr. Onofre explains that NGTs are not accepted at [facility], that if a patient needs artificial feeding, they must get a PEG either here or right away at [facility] when they arrive. Dr. Onofre also explains that Traci is not eligible for [facility] because she can not participate in rehabilitation such as PT/ST/OT. Traci 's degenerative neurological condition is not reversible. 4. Hospice eligibility: discussed with family and Dr. Onofre explained why Traci is eligible now for hospice based on amount of progression she has in her Parkinson's. Family had a hospice info visit in May 2016 and did not feel ready to accept hospice then. Javi is struggling with the idea of hospice and still wondering whether he should get a PEG for Traci, despite her wishes. José Luis and Kathy want to arrange another hospice info visit this hospitalization, but are not sure Javi will agree to sign up. Dr. Onofre left a message for case management to help the family connect with Hospice to learn more. In summary: whether to place a PEG is still undecided by family. Hospice info visit has been requested and request sent on to Case Management. Please contact Kathy [phone] to set up time. Problems: Resuscitation Status Resuscitation Status: DNR/DNI:Do Not Resuscitate/Intubate Pt History History of Present Illness History is obtained from . Patient is an 86-year-old female progressive debilitating consist disease and dementia. She has suffered progressive dysphagia and had difficulties with aspiration. She was recently admitted with an aspiration pneumonia. The patient also had a Proteus urine tract infection. Ultimately she was discharged to [facility] and has had a lot of difficulty keeping down adequate fluids. A PICC line was placed for intravenous fluid resuscitation at the custodial facility. She has had a stepwise deterioration was several months. The patient has become more confused and lethargic last 2 days. No reported fevers or chills. She was brought back to the emergency room and found to have evidence of probable recurrent urinary tract infection as well as possible aspiration. She really appears to be unable to drink anything she has not had her Sinemet for a day and a half and appears to be very stiff. Initial discussion with and and Dr. Eng on admission 01/23/17 regarding code status: She did have palliative care intervention last visit ( May 3016) and her code is DNR/DNI. Today when asked if she would want a temporary tube placed for administration of oral medication such as Sinemet he declined. We spent a lot of time focusing on the importance of comfort and the high probability of . He does wish to try IV fluids and antibiotics would cover for aspiration and possible recurrent urinary tract infection overnight.We will follow clinically and hold medications for now. Patient is DNR/DNI. The patient's does want IV fluids and antibiotics. I believe that she understands the probable futility of her current medical situation given her progress with dysphagia and overall general deterioration. I believe that he is considering comfort care. She was very open to boluses of IV morphine as needed for comfort at this time. If she fails to improve overnight I believe he will accept placing her on comfort care. Hospital Course: family-/daughter consulted, confirmed code status, would like temporary NG feeding but no permanent feeding. Attempted NG insertion but failed. plan for insertion by radiology tomorrow. Attending also discussed TPN until securing NG, family agreed. Past Medical History Significant PMH Noted: Past Medical History HTN PK-neuro eval and management by Dr. Johnnie Uriostegui 2015 Lewy body dementia Urinary retention with trial of lin-via urology eval, intrastim-Dr. 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 Has son-also in area. Living Situation: now living at [facility]. Originally from [place]-she and her moved up here recently to be near family Medications Current Medications: Current Medications Pantoprazole 40 mg 40 mg DAILYAC IVPUSH Last administered on 01/25/17 09:05; Admin Dose 40 MG; Start 01/24/17 at 19:10 Total Parenteral Nutrition ml @ 0 mls/hr DAILY@21 IV Last administered on 20:22; Admin Dose 67 MLS/HR; Start 01/25/17 at 21:00 Scheduled Aspirin (Aspirin) 81 Mg Tablet 81 MG PO DAILY Carbidopa/Levodopa 25-100 mg (Carbidopa/Levodopa 25-100 mg) 1 Each Tablet 2 EACH PO BID Carbidopa/Levodopa 25-100 mg (Carbidopa/Levodopa 25-100 mg) 1 Each Tablet 1 TABLET PO DAILY Cholecalciferol (Vitamin D3) (Vitamin D3) 2,000 Unit Tablet 4,000 UNIT PO DAILY Citalopram (Citalopram) 10 Mg Tablet 5 MG PO DAILY Cranberry Fruit (Cranberry) 450 Mg Tablet 450 MG PO BID D-Mannose (D-Mannose) 1 Gm Powder 500 MG PO DAILY Latanoprost (Latanoprost) 2.5 Ml Drops 1 GTT BOTH_EYES HS Losartan Potassium (Losartan Potassium) 100 Mg Tablet 50 MG PO BID Melatonin/Pyridoxine (Melatonin 3 mg Tablet) 1 Each Tablet 1 EACH PO HS Memantine HCl (Memantine HCl) 10 Mg Tablet 10 MG PO BID Metoprolol Tartrate (Metoprolol Tartrate) 25 Mg Tablet 12.5 MG PO BID Nitroglycerin (Nitro-Bid) 1 Gm Oint...g. 2 INCH TRANSDERM DAILY Quetiapine Fumarate (Quetiapine Fumarate) 25 Mg Tablet 12.5 MG PO HS Rivastigmine Patch (Exelon Patch) 13.3 Mg Patch 13.3 MG TRANSDERM DAILY Scheduled PRN Albuterol Neb Soln (Albuterol Neb Soln) 2.5 Mg/3 Ml Vial.neb 2.5 MG INHALATION QID PRN PRN For Shortness of Breath Naproxen (Naproxen) 250 Mg Tablet 250 MG PO TID PRN PRN For Pain Nitroglycerin (Nitro-Bid) 1 Gm Oint...g. 2 INCH TRANSDERM QID PRN PRN For HYPERtension Polyethylene Glycol 3350 (Miralax) 17 Gm Powd.pack 17 GM PO DAILY PRN PRN For Constipation Quetiapine Fumarate (Seroquel) 25 Mg Tablet 12.5 MG PO QID PRN PRN For Agitation Objective Findings Exam Vital Sign - Last Date Time Temp Pulse Resp B/P Pulse Ox O2 Delivery O2 Flow Rate FiO2 01/26/17 04:22 37.0 59 18 172/73 95 Room Air 01/24/17 08:49 0.50 Intake and Output 01/25/17 01/25/17 01/26/17 Cumulative From/Thru 15:00 23:00 07:00 01/23/17 09:23 - 01/26/17 06:27 Intake Total 1229 ml 217 ml 808 ml 6877 ml Output Total 500 ml 600 ml 3500 ml Balance 1229 ml -283 ml 208 ml 3377 ml Intake Oral 0 ml 0 ml 0 ml IV Total 1229 ml 217 ml 140 ml 6209 ml TPN/PPN 668 ml 668 ml Output Urine Total 500 ml 600 ml 3500 ml # Bowel Movements 0 1 Lab/Diagnostics Lab and Imaging results reviewed in detail in EMR. Time spent Total time 70 minutes; >50% face to face with patient and/or family, providing counselling regarding plans and recommendations, and in care coordination with his/her medical teams. I also spent an additional 65 minutes counseling for advanced care planning with the patient/the patients family/the surrogate decision maker. Jud Onofre MD January 26, 2017 08:48
--- NOTE | 2017-01-26 12:07 | PCM.PNMED ---
Subjective Date of Service January 26, 2017 Subjective Resting in bed not moving to much. Has missed parkinsons meds for a few days. No other specific problems per nurse. Family out now will touch base with them later. Plan is to get a feeding tube in suraj. Exam Vital Signs Vital Sign - Last Date Time Temp Pulse Resp B/P Pulse Ox O2 Delivery O2 Flow Rate FiO2 01/26/17 04:22 37.0 59 18 172/73 95 Room Air 01/24/17 08:49 0.50 Intake and Output 01/25/17 01/25/17 01/26/17 Cumulative From/Thru 15:00 23:00 07:00 01/23/17 09:23 - 01/26/17 06:27 Intake Total 1229 ml 217 ml 808 ml 6877 ml Output Total 500 ml 600 ml 3500 ml Balance 1229 ml -283 ml 208 ml 3377 ml Intake Oral 0 ml 0 ml 0 ml IV Total 1229 ml 217 ml 140 ml 6209 ml TPN/PPN 668 ml 668 ml Output Urine Total 500 ml 600 ml 3500 ml # Bowel Movements 0 1 Exam Eyes;clear, not infected HENT; adequate hydration CV; regular, no murmur Resp; Corse, no wheezing GI; soft non acute benign Skin; no active rashes Neuro;; poorly responsive with active parkinson tremor. Lab and Diagnostics Result Diagram: 01/26/17 0535 01/26/17 0535 X-Rays, CTs and MRIs CT BRAIN WITHOUT CONTRAST IMPRESSION: No acute intracranial disease process. Dictated by: Citlaly Rosa MD, PhD on 01/23/2017 at 11:35 X-RAY CHEST ONE VIEW, PORTABLE IMPRESSION: 1. Persistent left basilar radiopacities. Dictated by: Deb Arevalo M.D. on 01/24/2017 at 12:26 Assessment & Plan Traci Granados is an 86-year-old woman with past medical history significant for end-stage Parkinson disease, recurrent aspiration pneumonia, and recurrent Proteus UTI was currently under treatment for recurrent aspiration pneumonia. Hospital day #4. 1. Probable aspiration pneumonia, POA. -We will continue Zosyn, antibiotic day4 -Likely this will be a recurrent problem for the patient due to her severe Parkinson's disease. 2. Probable recurrent urinary tract infection with recent Proteus infection. POA. -Continue Zosyn -Klebsiella sensitive to Zosyn 3. Volume depletion, POA. -Continue IV fluids -NG tube today 4. Progressive dysphagia, POA. -NG tube today, start TPN today, 5. Parkinson's disease, poorly controlled. Inability to take medications. POA. -Morphine as needed for pain. -We will resume via NG tube Sinemet 6. Septic encephalopathy, POA. -We will follow clinically, although difficult to assess due to patient's underlying Parkinson's disease. 7. Dementia, POA. -We will follow clinically. 8. Hypertension, POA. -We will follow clinically and hold medications for now. 9. Goals of care -explained natural course of PD, recurrent aspiration PNA, appreciate further discussion with palliative care about hospice, family is opened to it. 10-Pain control -IV morphine prn pain CODE STATUS: DNR/DNI, no permanent feeding. Disposition:appreciate palliative care service tomorrow, plan to observe with abx, nutrition via NG/TPN, patient seems to be good candidate for hospice. lives at [facility], family may be requesting a new SNF GI Prophylaxis: Proton Pump Inhibitor VTE Prophylaxis: Sub-Q Heparin (Unfractionated) Resuscitation Status: DNR/DNI:Do Not Resuscitate/Intubate Diane Mazariegos MD January 26, 2017 12:07
--- NOTE | 2017-01-26 12:11 | NUR ---
Palliative Care Palliative Care received order from Dr Hansen 01/25/17 to assist with goals of care. Patient is an 86 year old woman with Parkinson's and dementia. She was admitted 01/23/17 with altered mental status and has been receiving care for aspiration pneumonia and UTI. The Palliative Care Team has seen patient several times during past admissions. Patient is a LTC resident at [facility]. Javi Granados () [phone] Kathy Ambriz (daughter) [phone] Palliative Care to follow. Betty Feliciano
[2017-01-26] MEDS ORDERED: Polyethylene Glycol (PEG) 17 Gm Powder PO PRN (12:25)
[2017-01-26] MEDS ORDERED: Albuterol 2.5 mg/3 mL Inhalation Solution NEB PRN (12:25)
--- NOTE | 2017-01-26 13:14 | DRSVH ---
PROCEDURE: X-RAY KUB ([id number]) INDICATIONS: check ng tube placement TECHNIQUE: One view of the abdomen acquired. COMPARISON: None. FINDINGS: Surgical changes and devices: Nasogastric tube is present with distal tip overlying the left upper qu adrant below the hemidiaphragm. Cholecystectomy clips and neurostimulator noted. Bowel: Bowel gas pattern is normal. Soft tissues: No suspicious abdominal calcifications. Visualized solid organ contours appear normal in size. Bones: No suspicious bony lesions. IMPRESSION: Nasogastric tube as above. Dictated by: Kirti Hdez M.D. on 01/26/2017 at 13:12 Approved by: Kirti Hdez M.D. on 01/26/2017 at 13:12
--- NOTE | 2017-01-26 13:18 | PCM.PHAPRO ---
Progress TPN Management: -Day 2 of TPN this evening -macronutrients will remain the same as yesterday: AA 25gm, Dextrose 100gm, Lipids 25gm -electrolytes have remained stable -formula for this evening: PARENTERAL NUTRITION ORDERS 2 26-Jan-17 Standard Hang Time: 2100 Substrates Total kcal: 690 AMINO ACIDS 25 g DEXTROSE 100 g Total Volume (mL): 1600 LIPIDS 25 g Sterile Water for Injection QS mL To Infuse Over (hrs): 24 Total Volume 1600 mL At at a rate of (mL/hr): 67 Additives Sodium Chloride 60 mEq "typical" daily requirements Sodium Acetate 40 mEq Sodium 50-120mEq Potassium Chloride 60 mEq Potassium 60-120mEq Potassium Phosphate 20 mEq Phosphate 20-40mEq Calcium Gluconate 9 mEq Magnesium 8-32mEq Magnesium Sulfate 8 mEq Calcium 9-22mEq Acetate* 80-120mEq Chloride* 80-120mEq Regular Insulin 5 units *Depending on acid-base status Famotidine mg Multivitamins 1 std dose Insulin Regimen Trace Elements 1 std dose none Thiamine mg Regular Low Intensity Subcut Folic Acid mg Regular Medium Intensity Subcut Ascorbic Acid mg Regular High Intensity Subcut Regular Insulin Infusion Other: Alyson Brown [facility] January 26, 2017 13:18
[2017-01-26 15:55] VITALS: BP 194/80; PULSE 67; RESP 22; O2SAT 94
--- NOTE | 2017-01-26 16:34 | NUR ---
NUTRITION FOLLOW-UP: ASSESS: 86 YO female admitted with recurrent aspiration pneumonia, UTI, volume depletion, progressive dysphagia. Patient's spouse understands the futility of her current medical situation given her progress with dysphagia and overall general deterioration; however, he would like to proceed with NG enteral feeding until family discussions in conjunction with the palliative team determine goals of care. Previous NG tube placement failed, so TPN was initiated yesterday. NG tube placement will be attempted again today. Palliative care following. PMHx: Parkinson's disease, dementia, progressive dysphagia, HTN, aspiration pneumonia, UTI, glaucoma. DIET: NPO NUTRITION SUPPORT: TPN~100 g Dextrose, 25 g Amino Acids, 25 g Lipids providing 690 kcals and 25 g protein. LABS: Reviewed. . Glu 118, Alb 2.7. MEDICATIONS: Reviewed. GI symptoms / stool: BM x 1 (01/23). Skin Integrity: No issues reported. ANTHROPOMETRICS: Current Wt: 51.4 kg IBW: 59.1 kg (87% IBW). Ht from previous admit: 66 inches. ESTIMATED NEEDS (UNDERWEIGHT): Calories: 1542 - 1799 kcal (30 - 35 kcal / kg BW) Protein: 62 - 77 g protein (1.2 - 1.5 g / kg BW) Fluid: Approx. 1285 mL (25 mL / kg BW) NUTRITION DIAGNOSIS: 1) Inadequate oral intake related to inability to consume sufficient energy, as evidenced by progressive dysphagia, requirement for enteral feeding--PERSISTS. NUTRITION INTERVENTION: 1) Recommend continuing current TPN today as pt may start on TF later today if NG tube can be placed. 2.) If NG tube placed, recommend Jevity 1.5 starting at 10 mL/hr x 12 hours. Once TF tolerance established, recommend advance 5 ml every 8 hr. to goal rate 45 mL/hr. Enteral feeding at goal will provide 1553 kcal, 66 g protein, sufficient to meet 100% nutrient needs. 3.) Once IV fluids are stopped, recommend flush dose of 50 ml every 2 hours to provide 1345 mL (TF + flushes) free H20 per day. 4.) Recommend TPN taper once pt is able to tolerated at least 50% of est. needs (TF at 30 ML/hr). MONITOR/EVALUATE: TPN tolerance, Enteral feeding start / advance / tolerance, labs, GI/nutrition status, POC. Follow per high nutrition risk guidelines.
[2017-01-26] MEDS: CITALOPRAM 10 MG PO SCH (16:40)
[2017-01-26] MEDS: 0.9% Sodium Chloride 1,000 ML IV SCH (16:47)
--- NOTE | 2017-01-26 17:46 | NUR ---
spiritual care: routine brief caring visit. pt did not respond to quiet conversational tone
--- NOTE | 2017-01-26 19:28 | NUR ---
Tube feeding Dr Pizarro was able to place dubhoff NG tube this afternoon. xray confirmed placement. started tube feeding per orders at 1430hrs. checked residual at 1700hrs, <5ml residual. TPN discontinued and NS started at 100ml/hr as ordered. patient more responsive with and children at the bedside. patient opens eyes, recited the lords praise with spouse and able to recite per ABC's for the family. continue to monitor.
[2017-01-26 20:01] VITALS: BP 190/92; PULSE 80; RESP 20; O2SAT 94
[2017-01-26 21:00] VITALS: PULSE 80; RESP 18; O2SAT 97
[2017-01-26] MEDS: Total Parenteral Nutrition 1 BAG IV SCH (21:00)
[2017-01-27] MEDS: Heparin 5,000 Unit/mL Inj SUBQ SCH ×3 (00:13→16:52)
[2017-01-27] MEDS: Piperacillin-Tazo 3.375 Gm Inj 3.375 GM in Dextrose 5% Minibag Plus 50 ML IV SCH ×3 (00:14→16:51)
[2017-01-27 00:17] VITALS: BP 111/59; PULSE 78; RESP 18; O2SAT 93
--- NOTE | 2017-01-27 00:40 | NUR ---
NG Tube Pt's NG tube got clogged. Re-insert by Jailene Mckeon RN. Verified with xray for placement. verified. Currently running 15mL per hour of Jevity 1.5 and flushes 40mL every 4 hours. Hourly rounding in effect.
[2017-01-27] MEDS: 0.9% Sodium Chloride 1,000 ML IV SCH ×3 (01:52→22:40)
[2017-01-27 04:36] VITALS: BP 123/70; PULSE 73; RESP 16; O2SAT 94
[2017-01-27 07:35] LABS: Magnesium 1.9 mg/dL (1.6-2.6); Phosphorus 3.2 mg/dL (2.5-4.9)
[2017-01-27 07:42] VITALS: PULSE 63; RESP 20; O2SAT 94
[2017-01-27] MEDS: Pantoprazole 4 mg/mL 10 mL Inj IVPUSH SCH (08:03)
[2017-01-27] MEDS: CITALOPRAM 10 MG PO SCH (08:24)
[2017-01-27] MEDS: EXELON 13.3 MG TOPICAL SCH (08:26)
--- NOTE | 2017-01-27 10:06 | PCM.PNMED ---
Subjective Date of Service January 27, 2017 Subjective Doing much better per family and nursing. Waking up able to carry on conversations at times. Sleeping again. No other problems noted. NG in and on tube feeds, also NS at 100 cc/hour. Exam Vital Signs Vital Sign - Last Date Time Temp Pulse Resp B/P Pulse Ox O2 Delivery O2 Flow Rate FiO2 01/27/17 08:30 Supplement Oxygen 01/27/17 07:42 63 20 94 01/27/17 04:36 37.1 123/70 01/24/17 08:49 0.50 Intake and Output 01/26/17 01/26/17 01/27/17 Cumulative From/Thru 15:00 23:00 07:00 01/23/17 09:23 - 01/27/17 06:43 Intake Total 920 ml 1712 ml 9509 ml Output Total 1650 ml 1000 ml 6150 ml Balance -730 ml 712 ml 3359 ml Intake Oral 0 ml 0 ml 0 ml IV Total 114 ml 1452 ml 7775 ml Tube Feeding 180 ml 180 ml TPN/PPN 696 ml 1364 ml Tube Irrigant 110 ml 80 ml 190 ml Output Urine Total 1650 ml 1000 ml 6150 ml Gastric Drainage Total 0 ml 0 ml # Bowel Movements 0 0 1 Exam Eyes; joelle, eom intact HENT; better hydration to mucus membranes CV; regular Resp; clear anteriorly GI; soft, non acute, benign Neuro; more alert able to arrouse, no focal deficits. Skin; no active rashes Lab and Diagnostics Result Diagram: 01/26/17 0535 01/27/17 0645 X-Rays, CTs and MRIs CT BRAIN WITHOUT CONTRAST IMPRESSION: No acute intracranial disease process. Dictated by: Citlaly Rosa MD, PhD on 01/23/2017 at 11:35 X-RAY CHEST ONE VIEW, PORTABLE IMPRESSION: 1. Persistent left basilar radiopacities. Dictated by: Deb Arevalo M.D. on 01/24/2017 at 12:26 Assessment & Plan Traci Granados is an 86-year-old woman with past medical history significant for end-stage Parkinson disease, recurrent aspiration pneumonia, and recurrent Proteus UTI was currently under treatment for recurrent aspiration pneumonia. Hospital day #5. 1. Probable aspiration pneumonia, POA. -We will continue Zosyn, antibiotic day5, however I think that the UTI was the primary infection for this patient -aspiration precautions (HOB > 30) 2. Probable recurrent urinary tract infection with recent Proteus infection. POA. -Continue Zosyn day6 -Klebsiella sensitive to Zosyn 3. Volume depletion, POA. -Continue IV fluids, NS 100 cc/hr -NG tube today 4. Progressive dysphagia, POA. -NG tube placed yesterday, tolerating, tpn off -will ask speech to work with patient to get her eating gain so hopefully we can remove the NG tube 5. Parkinson's disease, poorly controlled. Inability to take medications. POA. -Morphine as needed for pain, IV -We will resume via NG tube Sinemet 6. Septic encephalopathy, POA. -in retrospect patient did not meet sepsis criteria. 7. Dementia, POA, stable -We will follow clinically. 8. Hypertension, POA.stable -We will follow clinically and hold medications for now. 9. Goals of care -explained natural course of PD, recurrent aspiration PNA, appreciate further discussion with palliative care about hospice, family is opened to it. 10-Pain control -IV morphine prn pain CODE STATUS: DNR/DNI, no permanent feeding. Disposition:appreciate palliative care service tomorrow, plan to observe with abx, nutrition via NG/TPN, patient seems to be good candidate for hospice. lives at [facility], family may be requesting a new SNF GI Prophylaxis: Proton Pump Inhibitor VTE Prophylaxis: Sub-Q Heparin (Unfractionated) Resuscitation Status: DNR/DNI:Do Not Resuscitate/Intubate Diane Mazariegos MD January 27, 2017 10:06 Diane Mazariegos MD January 27, 2017 10:06
[2017-01-27 10:41] VITALS: BP 145/77; PULSE 62; RESP 16; O2SAT 97
--- NOTE | 2017-01-27 11:00 | NUR ---
Tube Feeding 1100 No GRV, feeding increased to 20ml/hr.
--- NOTE | 2017-01-27 12:05 | NUR ---
SW - Continued Discharge Planning Data: Pt is on day 4 of hospitalization for altered mental status, pneumonia, UTI. EMR reviewed. Pt's family had palliative care consult yesterday and MARILY met with family ( Javi and dtr Jordan [phone]) to follow up re: goals of care and discharge planning. Family stated they would like pt to return to [facility] and are potentially interested in Hospice info visit, need to discuss it a bit more amongst themselves. They are also potentially interested in exploring option of pt return home after some time at [facility] with in-home caregivers. SW provided printed info on in-home caregivers n the area. SW will follow-up later today re: hospice info visit. Data: Pt who resides at [facility] terminal worker Care Plan: Pt likely to return to [facility] when medically stable. MARILY will follow up re: Hospice info visit. MARILY will continue to follow for needs. ROMAN Soliz Addendum: 01/27/17 at 1213 by ANAYA SALCEDO SS Palliatev Care updated SW that they spoke to the family again and they are not interested in a Hospice info visit, do not want to be asked again. ROMAN Soliz
--- NOTE | 2017-01-27 13:53 | NUR ---
NUTRITION FOLLOW-UP: ASSESS: 86 YO female admitted with recurrent aspiration pneumonia, UTI, volume depletion, progressive dysphagia. Patient's spouse understands the futility of her current medical situation given her progress with dysphagia and overall general deterioration; however, he would like to proceed with NG enteral feeding until family discussions in conjunction with the palliative team determine goals of care. Pt was able to have NG tube place 01/26. NG tube became clogged overnight and had to be replaced. Currently TF are running at 20 ML/hr. TPN was discontinued 01/26. Family is still considering hospice info visit and palliative care is following. PMHx: Parkinson's disease, dementia, progressive dysphagia, HTN, aspiration pneumonia, UTI, glaucoma. DIET: NPO NUTRITION SUPPORT: Jevity 1.5 currently at 20 ML/hr and being slowly advanced to goal rate as tolerated. LABS: Reviewed. Glu 113, Alb 2.7. MEDICATIONS: Reviewed. GI symptoms / stool: BM x 1 (01/23). Skin Integrity: No issues reported. ANTHROPOMETRICS: Current Wt: 51.4 kg IBW: 59.1 kg (87% IBW). Ht from previous admit: 66 inches. ESTIMATED NEEDS (UNDERWEIGHT): Calories: 1542 - 1799 kcal (30 - 35 kcal / kg BW) Protein: 62 - 77 g protein (1.2 - 1.5 g / kg BW) Fluid: Approx. 1285 mL (25 mL / kg BW) NUTRITION DIAGNOSIS: 1) Inadequate oral intake related to inability to consume sufficient energy, as evidenced by progressive dysphagia, requirement for enteral feeding--PERSISTS. NUTRITION INTERVENTION: 1.) Recommend Jevity 1.5 starting at 20 mL/hr. Once TF tolerance established, recommend advancing TF 5 ml every 8 hr. to goal rate 45 mL/hr. Recommend H2O flushes of 30 mL every 4 hours while pt is on IV fluids. Enteral feeding at goal will provide 1553 kcal, 66 g protein, sufficient to meet 100% nutrient needs. 2.) Once IV fluids are stopped, recommend flush dose of 50 ml every 2 hours to provide 1345 mL (TF + flushes) free H20 per day. MONITOR/EVALUATE: Enteral feeding tolerance / advancement, labs, GI/nutrition status, POC. Follow per high nutrition risk guidelines. Addendum: 01/29/17 at [address] RN reported that pt TF was at goal of 45 ML/hr earlier this AM and pt was tolerating TF well. NG tube came out sometime after this and has since been replaced. Placement verification pending before TF can be restarted. Pt had hospice info visit earlier today. will continue to monitor for POC decision, TF restart/tolerance, etc.
--- NOTE | 2017-01-27 14:16 | PCM.PALLBR ---
Palliative Care Recommendation Summary of palliative recommendations: -Symptom management (Pain/other): adequate symptomatic control at this time. Continue per hospitalist team -DPOA/Advanced Directives/POLST: 1. Capacity: pt no longer has capacity to make her own healthcare decisions due to advanced Parkinson's disease. Her Javi is her designated decision maker. He is making decisions with the assistance of his two adult children: son José Luis and daughter Kathy. 2. Code Status: DNR/DNI 3. POLST, at a prior hospitalization on 06/10/16 Dr. Sanders met with family and helped create a POLST that said: DNR/DNI/limited interventions, antibiotic usage okay, brief trial of artificial nutrition possible. Copies appended to her chart and kept in the palliative office, and a copy given to her family members as well. This May 2016 POLST is not on her chart this admission. 01/27: Follow-up visit: Mera Onofre, Marisa, and Brooke CALIXTO from [facility] met briefly with Javi, his EULOGIO José Luis (Kathy's ) and granddaughter. 1. We are aware that overnight, Javi refused a hospice info visit, although he had agreed to it at our meeting on 01/26. He also indicated to our Palliative Care SW Bell Wright that he did not want people trying to talk to him about hospice anymore. 2. Today, Javi informs us that the family has decided against the "stomach tube" (PEG) for Traci. He is hoping that she will wake up and receive more calories with NGT in place for a few days and get strong enough to eat with hand feedings at hospital before returning to [facility]. listens supportively and encouraging the hope expressed today. 3. Dr. Onofre brought up TPN because Javi apparently has asked medical team to provide TPN for Traci as an alternate to NGT feedings. Dr. Onofre counsels Javi and family that she discussed this with Dr. Arreaga who feels that TPN will not offer the same quality of calories and nutritional value as NGT feedings. Javi says he understands that now, and has no further questions. 01/26 Family conference team meeting (FCTM): Present were: Dr. Onofre, Javi, Son José Luis, Dtr Kathy 1. Dr. Onofre went over Traci's current condition of recurrent aspiration of her own secretions/saliva, the pneumonia that resulted from this problem, that her dysphagia is progressive and directly related to evolving and worsening Parkinson's, and that aspiration is not a reversible problem. If Traci survives this aspiration pneumonia, there will be future aspiration pneumonias that are unavoidable, even if she has a permanent feeding tube placed in her stomach (PEG ). Dr. Onofre explained risks and benefits of PEG placement in people with end- stage Parkinson's Disease. She provided 3 patient handouts on PEG tubes ( informational) and PEG tube studies done nationwide that do not show benefit for demented or end-stage degenerative or neurological diseases. She answered questions after counseling. 2. Family understanding of disease process: Javi realizes that his 's illness is progressive and that she will from it. He just has a difficult time letting go of continuing to try to "fix her." He is a loyal and spends all day at [facility] with his , helping to attend to all her needs, and feeding her. He reads poetry, books and scripture to her. He says she "loves to eat" and sometimes eats "100% of her food and then some." This hasn't been happening recently though. He says she can smile at people and if they speak to her, sometimes she'll speak back a few words. She can hold herself upright in a W/C without support, but needs assistance in all ADLs. José Luis and Kathy readily accept that Traci is not getting quality in her life on her good days at the facility. They are able to see how hard this is for their father to prepare himself for a life without Traci in it. When she dies, his loss will be great. He doesn't have many activities except those centered around her. 3. At this point, the family informs Dr. Onofre that Traci had told them she didn't want a permanent feeding tube. They didn't know why, but that is why Javi approved of the NGT placement today. Javi hopes that Traci will recover from her aspiration pneumonia and UTI and be able to eat like she ate at [facility]. That she will be back at her baseline. Dr. Onofre explains that the NGT can not stay in once Traci is discharged. The family is surprised at this news. They ask about whether an NGT is accepted at a step-down acute care center like [facility] (which is near Kathy's home). Dr. Onofre explains that NGTs are not accepted at [facility], that if a patient needs artificial feeding, they must get a PEG either here or right away at [facility] when they arrive. Dr. Onofre also explains that Traci is not eligible for [facility] because she can not participate in rehabilitation such as PT/ST/OT. Traci 's degenerative neurological condition is not reversible. 4. Hospice eligibility: discussed with family and Dr. Onofre explained why Traci is eligible now for hospice based on amount of progression she has in her Parkinson's. Family had a hospice info visit in May 2016 and did not feel ready to accept hospice then. Javi is struggling with the idea of hospice and still wondering whether he should get a PEG for Traci, despite her wishes. José Luis and Kathy want to arrange another hospice info visit this hospitalization, but are not sure Javi will agree to sign up. Dr. Onofre left a message for case management to help the family connect with Hospice to learn more. In summary: whether to place a PEG is still undecided by family. Hospice info visit has been requested and request sent on to Case Management. Please contact Kathy [phone] to set up time. Problems: Resuscitation Status Resuscitation Status: DNR/DNI:Do Not Resuscitate/Intubate Total time 35 minutes; >50% face to face with patient and/or family, providing counselling regarding plans and recommendations, and in care coordination with his/her medical teams. Palliative Brief Note Date of Service January 27, 2017 . Patient Identification: Traci Granados is an 86-year-old woman with past medical history significant for end-stage Parkinson disease, recurrent aspiration pneumonia, and recurrent Proteus UTI was currently under treatment for recurrent aspiration pneumonia. She has suffered progressive dysphagia and had difficulties with aspiration as far back as May 2016. Hospital day #6. Hospital Course: At time of admission, initial discussion with and Dr. Eng on admission 01/23/17 regarding code status: She did have palliative care intervention last visit (May 2016) and her code is DNR/DNI. Today when asked if pt would want a temporary tube placed for administration of oral medication such as Sinemet, Javi declined. We spent a lot of time focusing on the importance of comfort and the high probability of . He does wish to try IV fluids and antibiotics would cover for aspiration and possible recurrent urinary tract infection overnight.We will follow clinically and hold medications for now. Patient is DNR/DNI. The patient's does want IV fluids and antibiotics. He seems to understand the futility of her current medical situation given her progressive dysphagia and overall general deterioration. After considerable conversation with Palliative Care at 01/26 family meeting, he remained uneasy about the idea of transitioning to hospice and still wants medical team to use simple interventions like NGT feeding ( which was placed 5/[address] Arreaga) and IV antibiotics to see if she will improve over the next few days. Jud Onofre MD January 27, 2017 14:16 Jud Onofre MD January 27, 2017 14:16
--- NOTE | 2017-01-27 14:56 | NUR ---
Pt is not appropriate for PO trials at this time. RAWHIDE TRIMMER will follow and attempt evaluation when pt is appropriate. Discussed with nursing professor.
--- NOTE | 2017-01-27 15:00 | NUR ---
residual checked residual q4h per protocol. no residual at this time. will recheck at 1900 and increase per protocol.
--- NOTE | 2017-01-27 15:59 | NUR ---
Palliative care note D/A: Met with pt family to provide support. Family would like to talk to Dr. Onofre in regards to TPN. Discussed that TPN most likely not available at [facility]. Discussed idea of [facility] info visit as well (after consultation with Priti lee) to follow up. Spouse quite adament at this time that he is not interested in hospice services at this time. Have given [facility] brochure to pt dtr. Have discussed above with jesus Ward. Have also let PC team know that spouse is indicating he is tired of medical staff asking him about potential interest in hospice. P: Palliative care to follow. Bell ORDONEZ, CCM
[2017-01-27 20:20] VITALS: PULSE 67; RESP 16
--- NOTE | 2017-01-27 22:05 | NUR ---
NG Tube Jevity 1.5 running 20mL/hr increase to 5mL/hr now currently on 25mL/hr. Reports of mild pain per . Morphine IV PRN administered. Hourly rounding in effect.
[2017-01-27 23:43] VITALS: BP 120/66; PULSE 59; RESP 18; O2SAT 95
[2017-01-28] MEDS: Heparin 5,000 Unit/mL Inj SUBQ SCH ×3 (00:57→16:20)
[2017-01-28] MEDS: Piperacillin-Tazo 3.375 Gm Inj 3.375 GM in Dextrose 5% Minibag Plus 50 ML IV SCH ×3 (00:58→16:20)
[2017-01-28 05:27] VITALS: BP 163/75; PULSE 56; RESP 18; O2SAT 96
--- NOTE | 2017-01-28 05:45 | NUR ---
Noc NG Feed Jevity 1.5 running on 30mL per hour. 265mL of feed and 90mL of flush via NG cleared. Pt has been partly conversational and would answer yes or no questions. Hourly rounding in effect, q2 turning and repositioning. No residue on the NG noted. Hourly rounding in effect.
[2017-01-28] MEDS: 0.9% Sodium Chloride 1,000 ML IV SCH ×2 (08:15→19:14)
[2017-01-28] MEDS: EXELON 13.3 MG TOPICAL SCH (08:17)
[2017-01-28] MEDS: CITALOPRAM 10 MG PO SCH (08:17)
[2017-01-28] MEDS: Pantoprazole 4 mg/mL 10 mL Inj IVPUSH SCH (08:18)
--- NOTE | 2017-01-28 11:58 | DRSVH ---
PROCEDURE: X-RAY KUB ([id number]) INDICATIONS: NG tube placement TECHNIQUE: One view of the abdomen acquired. COMPARISON: [facility], CR, XR KUB, 01/26/2017, 12:37. FINDINGS: Surgical changes and devices: Feeding tube tip projects over the distal stomach. Spinal stimulator. S urgical clips are upper quadrant. Left PICC tip in the low SVC. Bowel: Bowel gas pattern is normal. Soft tissues: No suspicious abdominal calcifications. Visualized solid organ contours appear normal in size. Bones: Extensive lumbar spine degenerative change with associated curvature. Lower lumbar spine posto perative change. Left hip bipolar arthroplasty. IMPRESSION: Feeding tube with tip projected over the distal stomach. Dictated by: Elías Talbot M.D. on 01/27/2017 at 7:44 Approved by: Elías Talbot M.D. on 01/27/2017 at 7:46
--- NOTE | 2017-01-28 12:14 | PCM.PNMED ---
Subjective Date of Service January 28, 2017 Subjective Been more sleepy. Seen by speech this AM, not ready to eat. Remains sleepy. No other problems per daughter or nurse Exam Vital Signs Vital Sign - Last Date Time Temp Pulse Resp B/P Pulse Ox O2 Delivery O2 Flow Rate FiO2 01/28/17 05:27 36.6 56 18 163/75 96 Room Air 01/24/17 08:49 0.50 Intake and Output 01/27/17 01/27/17 01/28/17 Cumulative From/Thru 15:00 23:00 07:00 01/23/17 09:23 - 01/28/17 06:10 Intake Total 100 ml 1427 ml 0 ml 02640 ml Output Total 750 ml 650 ml 7550 ml Balance 100 ml 677 ml -650 ml 3486 ml Intake Oral 0 ml 0 ml 0 ml IV Total 1239 ml 9014 ml Tube Feeding 108 ml 288 ml TPN/PPN 1364 ml Tube Irrigant 100 ml 80 ml 370 ml Output Urine Total 750 ml 650 ml 7550 ml Gastric Drainage Total 0 ml # Bowel Movements 0 1 Exam EYES; joelle, eom intact HENT, adequate hydration, no active lesions CV; regular Resp; course, otherwise clear GI; non tender benign Skin; no active rash Neuro; difficult to arrouse, sleeping, no new focal deficits Lab and Diagnostics Result Diagram: 01/26/17 0535 01/27/17 0645 X-Rays, CTs and MRIs CT BRAIN WITHOUT CONTRAST IMPRESSION: No acute intracranial disease process. Dictated by: Citlaly Rosa MD, PhD on 01/23/2017 at 11:35 X-RAY CHEST ONE VIEW, PORTABLE IMPRESSION: 1. Persistent left basilar radiopacities. Dictated by: Deb Arevalo M.D. on 01/24/2017 at 12:26 Assessment & Plan Traci Granados is an 86-year-old woman with past medical history significant for end-stage Parkinson disease, recurrent aspiration pneumonia, and recurrent Proteus UTI was currently under treatment for recurrent aspiration pneumonia. Hospital day #5. 1. Probable aspiration pneumonia, POA. -We will continue Zosyn, antibiotic day6, however I think that the UTI was the primary infection for this patient -aspiration precautions (HOB > 30) -cxr and procal in am 2. Probable recurrent urinary tract infection with recent Proteus infection. POA. -Continue Zosyn day6 -Klebsiella sensitive to Zosyn 3. Volume depletion, POA. -Continue IV fluids, NS 100 cc/hr -NG tube today 4. Progressive dysphagia, POA. -NG tube placed yesterday, tolerating, tpn off -will ask speech to work with patient to get her eating gain so hopefully we can remove the NG tube, they will reevaluate latter today and call me 5. Parkinson's disease, poorly controlled. Inability to take medications. POA. -We will resume via NG tube Sinemet 6. Septic encephalopathy, POA. -in retrospect patient did not meet sepsis criteria. 7. Dementia, POA, stable -We will follow clinically. 8. Hypertension, POA.stable -We will follow clinically and hold medications for now. 9. Goals of care -explained natural course of PD, recurrent aspiration PNA, appreciate further discussion with palliative care about hospice, family is opened to it. 10-Pain control -IV morphine but will reduce dose considerable CODE STATUS: DNR/DNI, no permanent feeding. Disposition:appreciate palliative care service tomorrow, plan to observe with abx, nutrition via NG/TPN, patient seems to be good candidate for hospice. lives at [facility], family may be requesting a new SNF GI Prophylaxis: Proton Pump Inhibitor VTE Prophylaxis: Sub-Q Heparin (Unfractionated) Resuscitation Status: DNR/DNI:Do Not Resuscitate/Intubate Diane Mazariegos MD January 28, 2017 12:14
--- NOTE | 2017-01-28 13:03 | PCM.PALLBR ---
Palliative Care Recommendation Summary of palliative recommendations: -Symptom management (Pain/other): adequate symptomatic control at this time. Continue per hospitalist team. Ordered a U/A with micro (if warranted) per 's request, for reassurance. -DPOA/Advanced Directives/POLST: 1. Capacity: pt no longer has capacity to make her own healthcare decisions due to advanced Parkinson's disease. Her Javi is her designated decision maker. He is making decisions with the assistance of his two adult children: son José Luis and daughter Kathy. 2. Code Status: DNR/DNI 3. POLST, at a prior hospitalization on 06/10/16 Dr. Sanders met with family and helped create a POLST that said: DNR/DNI/limited interventions, antibiotic usage okay, brief trial of artificial nutrition possible. Copies appended to her chart and kept in the palliative office, and a copy given to her family members as well. This May 2016 POLST is not on her chart this admission. After discussion with family on 01/26, that POLST remains accurate for the patient/ family goals. They have decided not to place a PEG tube, but only use temporary NGT during this hospitalization 01/28: At times, Javi seems to understand the endpoint of her current medical situation given her progressive dysphagia and overall general deterioration. However, after considerable conversation with Palliative Care at 01/26 family meeting, he remained uneasy about the idea of transitioning to hospice and has asked medical team and Palliative Care to stop bringing this option up. 01/27: Follow-up visit: Mera Onofre, Marisa, and Brooke CALIXTO from [facility] met briefly with Javi, his EULOGIO José Luis (Kathy's ) and granddaughter. 1. We are aware that overnight, Javi refused a hospice info visit, although he had agreed to it at our meeting on 01/26. He also indicated to our Palliative Care SW Bell Wright that he did not want people trying to talk to him about hospice anymore. 2. Today, Javi informs us that the family has decided against the "stomach tube" (PEG) for Traci. He is hoping that she will wake up and receive more calories with NGT in place for a few days and get strong enough to eat with hand feedings at hospital before returning to [facility]. listens supportively and encouraging the hope expressed today. 3. Dr. Onofre brought up TPN because Javi apparently has asked medical team to provide TPN for Traci as an alternate to NGT feedings. Dr. Onofre counsels Javi and family that she discussed this with Dr. Arreaga who feels that TPN will not offer the same quality of calories and nutritional value as NGT feedings. Javi says he understands that now, and has no further questions. 01/26: Family conference team meeting (FCTM): please see Initial Consult note written by Dr. Onofre 01/26 for details. Problems: Resuscitation Status Resuscitation Status: DNR/DNI:Do Not Resuscitate/Intubate Total time 25 minutes; >50% face to face with patient and/or family, providing counselling regarding plans and recommendations, and in care coordination with his/her medical teams. Palliative Brief Note Date of Service January 28, 2017 . Patient Identification: Traci Granados is an 86-year-old woman with past medical history significant for end-stage Parkinson disease, recurrent aspiration pneumonia, and recurrent Proteus UTI was currently under treatment for recurrent aspiration pneumonia. She has suffered progressive dysphagia and had difficulties with aspiration as far back as May 2016. Hospital day #7. Hospital Course: At time of admission, initial discussion with and Dr. Eng on admission 01/23/17 regarding code status: She did have palliative care intervention last visit (May 2016) and her code is DNR/DNI with limited interventions and no permanent artificial feeding by PEG. Subsequently, she has been receiving IV Zosyn for Klebsiella UTI and aspiration pneumonia and IV hydration. Pt has had a temporary NGT in place (since 01/26) for feeding and oral medications (anti-Parkinson's meds: Sinemet). Speech asked to work with her to promote oral intake, but she was too sleepy on both 01/27 and 01/28 for swallow assessment at bedside. She is still not taking any po medications. Subjective: complains that Traci's urine is still "bloody." He thinks she is not waking up because the UTI has not cleared. He wants another U/A to check the urine and make sure there isn't another infection making the urine dark. Jud Onofre MD January 28, 2017 13:03 not sure Javi will agree to sign up. Dr. Onofre left a message for case management to help the family connect with Hospice to learn more. In summary: whether to place a PEG is still undecided by family. Hospice info visit has been requested and request sent on to Case Management. Please contact Kathy [phone] to set up time. Problems: Resuscitation Status Resuscitation Status: DNR/DNI:Do Not Resuscitate/Intubate Total time [ ] minutes; >50% face to face with patient and/or family, providing counselling regarding plans and recommendations, and in care coordination with his/her medical teams. I also spent an additional [ ] minutes counseling for advanced care planning with the patient/the patients family/the surrogate decision maker. Palliative Brief Note Date of Service January 28, 2017 . Patient Identification: Traci Granados is an 86-year-old woman with past medical history significant for end-stage Parkinson disease, recurrent aspiration pneumonia, and recurrent Proteus UTI was currently under treatment for recurrent aspiration pneumonia. She has suffered progressive dysphagia and had difficulties with aspiration as far back as May 2016. Hospital day #7. Hospital Course: At time of admission, initial discussion with and Dr. Eng on admission 01/23/17 regarding code status: She did have palliative care intervention last visit (May 2016) and her code is DNR/DNI with limited interventions and no permanent artificial feeding by PEG. Subsequently, she has been receiving IV Zosyn for Klebsiella UTI and aspiration pneumonia and IV hydration. Pt has had a temporary NGT in place (since 01/26) for feeding and oral medications (anti-Parkinson's meds: Sinemet). Speech asked to work with her to promote oral intake, but she was too sleepy 01/27. She is still not taking any po medications. Jud Onofre MD January 28, 2017 13:03
[2017-01-28 13:20] VITALS: PULSE 55; RESP 16; O2SAT 94
[2017-01-28 13:41] VITALS: BP 157/85; PULSE 72; RESP 20; O2SAT 97
--- NOTE | 2017-01-28 13:44 | NUR ---
CLOTHES MODEL attempted eval with pt x 2 today. Pt was somnolent and did not open her eyes to verbal or tactile stimuli. Case discussed with MD and RN. CLOTHES MODEL will follow and attempt evaluation tomorrow.
[2017-01-28 14:59] LABS: APPEARANCE,URINE SLIGHTLY CLOUDY (CLEAR,HAZY); COLOR,URINE DARK YELLOW (YELLOW)
[2017-01-28 15:00] LABS: OCCULT BLOOD,URINE LARGE (NEGATIVE); PH,URINE 5.5 (5.0-8.0); UROBILINOGEN,URINE NORMAL (NORMAL)
--- NOTE | 2017-01-28 16:24 | NUR ---
Palliative Care SHRIMP PEELER Note6:00PM D: This singer songwriter went to check in with pt. and family about how they are coping with pt.'s ongoing health issues. Pt. was somnolent during the time this singer songwriter was present. Her , Javi, and daughter, Sierra, were both in her room. Javi asked this singer songwriter, "Tell me about comfort care". This singer songwriter explained that if a patient is no longer benefiting from curative or life-prolonging treatments, a transition to comfort care helps support quality of life as pt.'s dying process unfolds. Javi noted that he realized today pt. is probably getting closer to dying and that he wants her to be home if that's the case. This singer songwriter talked with Javi and Sierra about the support Hospice can provide at home, and they expressed they wanted to speak with [facility] about having pt. go home with hospice care. Sierra and Javi both shared they would also want to hire some in-home care support for pt. Javi and Sierra will call José Luis, pt.'s son, to determine a good time for him to also talk with [facility] about inhome hospice care. Javi shared he is concerned that if pt. returned to [facility] she would not get the right level of care support as she moved closer to end of life. Juan Carlos and Sierra repeatedly shared that having pt. home seemed like the best plan if she is in fact going to in the coming weeks to months. A: Family has begun to accept that pt.'s overall prognosis is poor and that she may benefit from hospice/comfort care. P: This singer songwriter informed [facility] that pt.'s family would like to meet with them tomorrow to discuss whether to start Hospice services at home. Brooke Meade, SHRIMP PEELER, [facility] Palliative Care Services
--- NOTE | 2017-01-28 16:29 | NUR ---
Tube Feeding: Jevity TF 35mls, tolerating well, no residual. TF increased to 40mls/hr @ 1530. Will report to NOC shift to evaluate if patient tolerating increase of TF @ 2330 and attempt goal rate of 45mls/hr.
--- NOTE | 2017-01-28 16:50 | NUR ---
SW - Continued Discharge Planning Per MD pt will possibly have NG tube at discharge. Pt comes from [facility] and they cannot accept NG tube. SW will follow up with family for alternate SNF preferences who are able to accept NG tubes. ROMAN Soliz
[2017-01-28 20:30] VITALS: BP 188/84; PULSE 72; RESP 20; O2SAT 95
[2017-01-29] MEDS: Piperacillin-Tazo 3.375 Gm Inj 3.375 GM in Dextrose 5% Minibag Plus 50 ML IV SCH ×3 (00:47→17:16)
[2017-01-29] MEDS: Heparin 5,000 Unit/mL Inj SUBQ SCH ×3 (00:47→17:17)
[2017-01-29 04:56] VITALS: BP 193/82; PULSE 73; RESP 22; O2SAT 96
[2017-01-29 05:24] LABS: BASOPHILS % (AUTO) 0.7 % (0-3); EOSINOPHILS % (AUTO) 6.2 % (0-5); MONOCYTES % (AUTO) 9.2 % (4-12); Mean Corpuscular Hemoglobin 29.5 pg (27.0-35.0); Mean Corpuscular Volume 87.6 fL (81-100); NEUTROPHILS % (AUTO) 58.6 % (40-74); Platelet Count 124 bil/L (150-400)
[2017-01-29 06:28] VITALS: BP 157/75; PULSE 66
--- NOTE | 2017-01-29 06:44 | NUR ---
TF/pain/BM Pt tolerating Tube feeding. No residual noted. TF increased to 45mL/hr (goal) around 23:30. No residual noted @3:30. HOB at 30degrees. Morphine given by previous shift. Daughter, Dheeraj stated that pt is calmer tonight than other nights. Pt has been sleeping in between turning and changing. Had multiple diarrhea this shift after getting Senna on day shift. excoriated periarea; barrier wipes used and calmoseptine.
[2017-01-29 07:54] VITALS: PULSE 70; RESP 20; O2SAT 94
[2017-01-29] MEDS: Pantoprazole 4 mg/mL 10 mL Inj IVPUSH SCH (08:20)
--- NOTE | 2017-01-29 08:29 | DRSVH ---
PROCEDURE: X-RAY CHEST ONE VIEW, PORTABLE ([id number]) INDICATIONS: SHORT OF BREATH TECHNIQUE: One view of the chest was acquired. COMPARISON: [facility], CR, XR CHEST 1VW (PORTABLE), 01/24/2017, 10:27. [facility], CR, XR KUB, 01/26/2017, 12:37. [facility], CR, XR KUB, 01/26/2017, 22:00. FINDINGS: Surgical changes and devices: Nasogastric tube is present with the tip projected over the superior me diastinum. Stable positioning of left PICC. Lungs and pleura: Interval increase in patchy airspace opacity within the right lung base and persist ent consolidation involving the left lung base. No pneumothorax. Mediastinum: Mediastinal contours appear normal. Heart size is normal. Bones and chest wall: No suspicious bony lesions. Overlying soft tissues appear unremarkable. IMPRESSION: 1. Nasogastric tube tip likely positioned within the upper to mid esophagus otherwise stable position ing of left PICC. 2. Interval increase in patchy opacity within the right lung base with persistent consolidation withi n the left lung base suggesting aspiration or pneumonia. Correlate clinically. Delfina Membreno RN given results at 0828 hrs. 01.29.2017. Dictated by: Carlito Ceron RRA Interpreted: Gennaro Ashraf MD on 01/29/2017 at 8:17 Transcribed by: CHANDNI on 01/29/2017 at 8:29 Approved by: Kip Ashraf M.D. on 01/29/2017 at 10:51
--- NOTE | 2017-01-29 08:32 | NUR ---
Imaging Per Diagnostic imaging, Feed tube in upper esophagus. Tube feed stopped, family and MD aware. Will continue to monitor.
[2017-01-29] MEDS: 0.9% Sodium Chloride 1,000 ML IV SCH ×2 (09:02→14:20)
--- NOTE | 2017-01-29 10:45 | NUR ---
Palliative Care TRUCK DRIVER Note178:45AM This casualty underwriter let pt.'s family know that [facility] will come to see them later today for informational visit. Pt.'s and daughter asked if [facility] could visit at 13:00 so that pt.'s son can also join the meeting by phone. CM TRUCK DRIVER, Tresa, updated on plan for pt. to have Hospice info visit and that family may elect to have pt. transfer home with hospice services once she is medically stable for discharge. Further conversation is needed between medical team and family related to pt.'s current clinical status and what transitioning to comfort care will mean in terms of ongoing medical interventions for UTI and feeding. Call to [facility] requesting appt. at 13:00. [facility] confirmed they will meet with family at this time in pt.'s room. Family updated that meeting is set for 13:00. ROMAN Okeefe, [facility] Palliative Care Services
[2017-01-29 12:24] VITALS: BP 193/75; PULSE 66; RESP 18; O2SAT 96
--- NOTE | 2017-01-29 13:02 | NUR ---
Tube advancement Guide wire inserted to resistance, Dobhoff tube advanced. Pt swallowed spontaneously x 2 while advancing, however tolerated tube advancement well. Stat chest x ray ordered and completed. Will continue to monitor.
--- NOTE | 2017-01-29 13:45 | DRSVH ---
PROCEDURE: X-RAY CHEST ONE VIEW, PORTABLE ([id number]) INDICATIONS: check Dobhoff tube placement TECHNIQUE: One view of the chest was acquired. COMPARISON: [facility], CR, XR CHEST 1VW (PORTABLE), 01/29/2017, 6:04. FINDINGS: Surgical changes and devices: There is interval advancement of the feeding tube with the tip in the e xpected region of the gastric antrum. A left upper extremity PICC line is partially visualized with the tip in the region of the right atrium. Lungs and pleura: There is a persistent small left pleural effusion with left basilar consolidation o r atelectasis. The upper lung zones are not included on current study. There is mild pulmonary vasc ular prominence suggesting mild edema. Mediastinum: Heart size is within normal limits for technique. Bones and chest wall: No suspicious bony lesions. Overlying soft tissues appear unremarkable. IMPRESSION: 1. Feeding tube advanced into the stomach with the tip in the region of the gastric antrum. 2. Persistent small left pleural effusion with left basilar consolidation or atelectasis. 3. Mild pulmonary edema. Dictated by: Sanjay Taylor M.D. on 01/29/2017 at 13:41 Approved by: Sanjay Taylor M.D. on 01/29/2017 at 13:43
[2017-01-29] MEDS: CITALOPRAM 10 MG PO SCH (14:53)
[2017-01-29] MEDS: EXELON 13.3 MG TOPICAL SCH (14:54)
--- NOTE | 2017-01-29 14:58 | NUR ---
Social Work: Continued d/c planning Data: Pt is on day 6 of hospitalization. EMR reviewed. PROCESS AREA SUPERVISOR met with pt's and daughter after the hospice info visit. They state that they signed consents but are unsure if they want to open on they day pt discharges from hospital or not. PROCESS AREA SUPERVISOR discussed discharge planning options. Family states that if pt does not have NG tube at d/c, they will either have her go back to [facility] or go home with hospice. If pt discharges with the NG tube, they are willing for pt to go to a different SNF which can accommodate the NG tube, stating that [facility] is their preference but would like referrals sent to [facility] also. UR specialist referred pt. PROCESS AREA SUPERVISOR will continue to follow. Plan: Family states that if pt does not have NG tube at d/c, they will either have her go back to [facility] or go home with hospice. If pt discharges with the NG tube, they are willing for pt to go to a different SNF which can accommodate the NG tube, stating that [facility] is their preference but would like referrals sent to [facility] also. UR specialist referred pt. PROCESS AREA SUPERVISOR will continue to follow. ROMAN Caballero
--- NOTE | 2017-01-29 14:58 | NUR ---
Gave access to [facility] and [facility] and faxed facesheet per MEDICAL RECORD LIBRARIANS TEACHER [facility] is preference. Addendum: 01/29/17 at 1551 by NEO CLEMENS CM [facility] can accept patient with to follow Updated MEDICAL RECORD LIBRARIANS TEACHER
--- NOTE | 2017-01-29 15:42 | PCM.PNMED ---
Subjective Date of Service January 29, 2017 Subjective Unfortunately NG tube was unusable for a few hour this AM so missed a dose of sinemet, replace, sinemet restarted. Exam Vital Signs Vital Sign - Last Date Time Temp Pulse Resp B/P Pulse Ox O2 Delivery O2 Flow Rate FiO2 01/29/17 12:24 36.6 66 18 193/75 96 Room Air 01/24/17 08:49 0.50 Intake and Output 01/28/17 01/28/17 01/29/17 Cumulative From/Thru 15:00 23:00 07:00 01/23/17 09:23 - 01/29/17 06:33 Intake Total 345 ml 1816 ml 1088 ml 06940 ml Output Total 225 ml 800 ml 8575 ml Balance 345 ml 1591 ml 288 ml 5710 ml Intake Oral 0 ml 0 ml 0 ml IV Total 1229 ml 530 ml 15425 ml Tube Feeding 265 ml 447 ml 453 ml 1453 ml TPN/PPN 1364 ml Tube Irrigant 80 ml 140 ml 105 ml 695 ml Output Urine Total 225 ml 800 ml 8575 ml Gastric Drainage Total 0 ml # Bowel Movements 1 5 7 Exam difficult to arrouse, no foacl defects EYES; joelel, eom intact HENT, adequate hydration, no active lesions CV; regular Resp; course, otherwise clear GI; non tender benign Skin; no active rash Neuro; difficult to arrouse, sleeping, no new focal deficits Lab and Diagnostics Result Diagram: 01/29/17 0515 01/29/17 0515 X-Rays, CTs and MRIs CT BRAIN WITHOUT CONTRAST IMPRESSION: No acute intracranial disease process. Dictated by: Citlaly Rosa MD, PhD on 01/23/2017 at 11:35 X-RAY CHEST ONE VIEW, PORTABLE IMPRESSION: 1. Persistent left basilar radiopacities. Dictated by: Deb Arevalo M.D. on 01/24/2017 at 12:26 Assessment & Plan Traci Granados is an 86-year-old woman with past medical history significant for end-stage Parkinson disease, recurrent aspiration pneumonia, and recurrent Proteus UTI was currently under treatment for recurrent aspiration pneumonia. Hospital day #5. 1. Probable aspiration pneumonia, POA. -We will continue Zosyn, antibiotic day7, however I think that the UTI was the primary infection for this patient on admission -possible re aspiration by cxr, will continue antibiotics and consider repeat cxr -aspiration precautions (HOB > 30) 2. Probable recurrent urinary tract infection with recent Proteus infection. POA. resolved -Continue Zosyn day7 -Klebsiella sensitive to Zosyn 3. Volume depletion, POA. -reduce IV fluids, NS 60 cc/hr -NG tube today 4. Progressive dysphagia, POA. -NG tube replaced today -will ask speech to work with patient to get her eating gain so hopefully we can remove the NG tube, they will reevaluate latter today and call me -NG tube needs to be replaced immediately if parkinson medication due 5. Parkinson's disease, poorly controlled. Inability to take medications. POA. -We will resume via NG tube Sinemet 6. Septic encephalopathy, POA. -in retrospect patient did not meet sepsis criteria. 7. Dementia, POA, stable -We will follow clinically. 8. Hypertension, POA.stable -We will follow clinically and hold medications for now. 9. Goals of care -explained natural course of PD, recurrent aspiration PNA, appreciate further discussion with palliative care about hospice, family is opened to it. 10-Pain control -IV morphine but will reduce dose considerable CODE STATUS: DNR/DNI, no permanent feeding. Disposition:appreciate palliative care service tomorrow, plan to observe with abx, nutrition via NG/TPN, patient seems to be good candidate for hospice. lives at [facility], family may be requesting a new SNF GI Prophylaxis: Proton Pump Inhibitor VTE Prophylaxis: Sub-Q Heparin (Unfractionated) Resuscitation Status: DNR/DNI:Do Not Resuscitate/Intubate Diane Mazariegos MD January 29, 2017 15:42
--- NOTE | 2017-01-29 16:54 | NUR ---
spiritual care: family conversational visit; pt appeared to follow gist of room conversation which included memories with and dtr, discussion of medical plan and coping. Pt participated in lord's prayer.
--- NOTE | 2017-01-29 17:33 | NUR ---
Tube feed/stool Feed resumed at approx 1445, goal rate of 45 mls/hr wit residual volume checked, 37 mls withdrawn and re-instilled. Pt tolerating well. Pt has had multiple loose stool through out the day. Aayush applied to excoriated buttocks, Q2 turns, family at bedside assisting with care. Intentional rounding in place, will continue to monitor.
[2017-01-29 18:09] VITALS: BP 151/86; PULSE 67; RESP 16
--- NOTE | 2017-01-29 21:34 | NUR ---
HS meds Gave 6.25 mg of Seroquel at HS per daughter's request, as patient has been sedated. Will give Namenda and Metoprolol a little later, as AM doses were late due to NG placement issues. Scanned meds, but didn't save in computer.
[2017-01-30] MEDS: Piperacillin-Tazo 3.375 Gm Inj 3.375 GM in Dextrose 5% Minibag Plus 50 ML IV SCH ×3 (01:05→16:19)
[2017-01-30] MEDS: Heparin 5,000 Unit/mL Inj SUBQ SCH ×3 (01:12→16:19)
--- NOTE | 2017-01-30 04:19 | NUR ---
mentation/mobility/NG feeding Continues to be somewhat sedated. opens eyes during care. Combative several times, but weak. Requires total assist with care. Turning patient every 2-3 hours with bri care. No further loose stools tonight, and calmoseptine applied frequently to reddened areas. NG feeding infusing without problems at goal.
[2017-01-30 06:16] VITALS: BP 172/89; PULSE 60; RESP 20; O2SAT 97
--- NOTE | 2017-01-30 07:29 | PCM.PNMED ---
Subjective Date of Service January 30, 2017 Subjective NG tube OK, meds on time. Better this AM, able to speak and answer questions but not back to base line. No other problems noted. Exam Vital Signs Vital Sign - Last Date Time Temp Pulse Resp B/P Pulse Ox O2 Delivery O2 Flow Rate FiO2 01/30/17 06:16 36.6 60 20 172/89 97 Room Air 01/24/17 08:49 0.50 Intake and Output 01/29/17 01/29/17 01/30/17 Cumulative From/Thru 15:00 23:00 07:00 01/23/17 09:23 - 01/30/17 06:52 Intake Total 707 ml 1229 ml 61484 ml Output Total 1350 ml 1000 ml 68017 ml Balance -643 ml 229 ml 5296 ml Intake Oral 0 ml 0 ml 0 ml IV Total 587 ml 594 ml 12043 ml Tube Feeding 120 ml 515 ml 2088 ml TPN/PPN 1364 ml Tube Irrigant 120 ml 815 ml Output Urine Total 1350 ml 1000 ml 18063 ml Gastric Drainage Total 0 ml # Bowel Movements 3 1 11 Exam eyes closed, arrouse easily, answers question appropriately, strong voice, much less tremor today. EYES; joelle, eom intact HENT, adequate hydration, no active lesions CV; regular Resp; course, otherwise clear GI; non tender benign Skin; no active rash Neuro;, no new focal deficits Lab and Diagnostics Result Diagram: 01/29/17 0515 01/29/17 0515 X-Rays, CTs and MRIs CT BRAIN WITHOUT CONTRAST IMPRESSION: No acute intracranial disease process. Dictated by: Citlaly Rosa MD, PhD on 01/23/2017 at 11:35 X-RAY CHEST ONE VIEW, PORTABLE IMPRESSION: 1. Persistent left basilar radiopacities. Dictated by: Deb Arevalo M.D. on 01/24/2017 at 12:26 Assessment & Plan Traci Granados is an 86-year-old woman with past medical history significant for end-stage Parkinson disease, recurrent aspiration pneumonia, and recurrent Proteus UTI was currently under treatment for recurrent aspiration pneumonia. Hospital day #5. 1. Probable aspiration pneumonia, POA. -We will continue Zosyn, antibiotic day8, however I think that the UTI was the primary infection for this patient on admission -possible re aspiration by cxr, will continue antibiotics, repeat cbc, procal, cxr tomorrow am, consider stoping antibiotics tomorrow -aspiration precautions (HOB > 30) 2. Probable recurrent urinary tract infection with recent Proteus infection. POA. resolved -Continue Zosyn day8 -Klebsiella sensitive to Zosyn 3. Volume depletion, POA. -reduce IV fluids, NS 60 cc/hr -NG tube today 4. Progressive dysphagia, POA. -NG tube replaced today -will ask speech to work with patient to get her eating gain so hopefully we can remove the NG tube, they will reevaluate latter today and call me -NG tube needs to be replaced immediately if parkinson medication due 5. Parkinson's disease, poorly controlled. Inability to take medications. POA. -We will resume via NG tube Sinemet 6. Septic encephalopathy, POA. -in retrospect patient did not meet sepsis criteria. 7. Dementia, POA, stable -We will follow clinically. 8. Hypertension, POA.stable -We will follow clinically and hold medications for now. 9. Goals of care -explained natural course of PD, recurrent aspiration PNA, appreciate further discussion with palliative care about hospice, family is opened to it. 10-Pain control -IV morphine but will reduce dose considerable 11-Altered mental status; poa, active -obviously many initial causes but now we need to make sure meds are given on time, I think the infection, dehydration have been corrected. CODE STATUS: DNR/DNI, no permanent feeding. Disposition:appreciate palliative care service tomorrow, plan to observe with abx, nutrition via NG/TPN, patient seems to be good candidate for hospice. lives at [facility], family may be requesting a new SNF GI Prophylaxis: Proton Pump Inhibitor VTE Prophylaxis: Sub-Q Heparin (Unfractionated) Resuscitation Status: DNR/DNI:Do Not Resuscitate/Intubate Diane Mazariegos MD January 30, 2017 07:28
[2017-01-30] MEDS: Pantoprazole 4 mg/mL 10 mL Inj IVPUSH SCH (08:26)
--- NOTE | 2017-01-30 08:26 | NUR ---
Palliative Care COLOR DRUM WORKER Note178:20AM This commercial lines underwriter called [facility] and spoke with Samira about pt. starting Hospice services at [place] from [facility]. Per case management notes, pt. will either go to [facility] or home at [place] depending on family preference. [facility] can open pt. to services on Thursday, February 02 if pt. is DC'd from [facility] by that date. Time of open pending at this time. Brooke Meade, COLOR DRUM WORKER, [facility] Palliative Care Services
[2017-01-30] MEDS: 0.9% Sodium Chloride 1,000 ML IV SCH ×2 (08:27→15:15)
[2017-01-30] MEDS: CITALOPRAM 10 MG PO SCH (08:32)
[2017-01-30] MEDS: EXELON 13.3 MG TOPICAL SCH (08:33)
--- NOTE | 2017-01-30 10:26 | NUR ---
Evaluation completed. Please go to "Notes" then click on "Assessments and Notes" (bottom left corner of screen). Then select appropriate discipline tab on top of screen.
--- NOTE | 2017-01-30 11:21 | NUR ---
INGA: VASCULAR NEUROLOGIST is working with family on discharge planning and will give the INGA to POHayley
--- NOTE | 2017-01-30 13:47 | NUR ---
NUTRITION FOLLOW-UP: ASSESS: 86 YO female admitted with recurrent aspiration pneumonia, UTI, volume depletion, progressive dysphagia. Patient's spouse understands the futility of her current medical situation given her progress with dysphagia and overall general deterioration; however, he would like to proceed with NG enteral feeding until family discussions in conjunction with the palliative team determine goals of care. Pt was able to have NG tube place 01/26, feeding tube came out, was replaced 01/29, restarted at goal and appears to be well tolerated. Pt had hospice info. visit, per case management family is open to hospice vs. potential discharge to SNF. Current goals are DNR/DNI with no permanent feeding tube. Pt has been evaluated by ST today with diet advancement to Stimulation, indicating goal of transitioning off NG tube to oral diet if possible. PMHx: Parkinson's disease, dementia, progressive dysphagia, HTN, aspiration pneumonia, UTI, glaucoma. DIET: Stimulation. NUTRITION SUPPORT: Jevity 1.5 currently at 45 ML/tv=7842 kcal, 66 g protein, sufficient to meet 100% nutrient needs. LABS: Reviewed. Glu 103, Ca 8.1, Alb 2.7 MEDICATIONS: Reviewed. GI symptoms / stool: BM x 1 (01/30). Skin Integrity: No issues reported. ANTHROPOMETRICS: Current Wt: 51.4 kg IBW: 59.1 kg (87% IBW). Ht from previous admit: 66 inches. ESTIMATED NEEDS (UNDERWEIGHT): Calories: 1542 - 1799 kcal (30 - 35 kcal / kg BW) Protein: 62 - 77 g protein (1.2 - 1.5 g / kg BW) Fluid: Approx. 1285 mL (25 mL / kg BW) NUTRITION DIAGNOSIS: 1) Inadequate oral intake related to inability to consume sufficient energy, as evidenced by progressive dysphagia, requirement for enteral feeding--MILDLY IMPROVING. Diet advancing per ST. NUTRITION INTERVENTION: 1.) Continue with tube feeding at goal rate, taper down accordingly pending po intake/diet advancement. Current diet provides minimal kcal/protein. 2.) Once IV fluids are stopped, recommend flush dose of 50 ml every 2 hours to provide 1345 mL (TF + flushes) free H20 per day. MONITOR/EVALUATE: Enteral feeding tolerance, Diet tolerance/advancement, labs, GI/nutrition status, overall POC (Palliative consulted for 01/31?). Follow per high nutrition risk guidelines.
[2017-01-30 13:56] VITALS: BP 182/94; PULSE 59; RESP 20; O2SAT 95
--- NOTE | 2017-01-30 15:30 | NUR ---
PO medications Patient has been taking PO medications crushed in pudding with no difficulty. Patient continues to have NG tube running at 45ml/hour. Patient tolerating STIM diet well. Patient ate 100% of lunch with STIM diet which consisted of a cup of chocolate pudding and a container of applesauce.
[2017-01-30 21:20] VITALS: BP 156/73; PULSE 71; RESP 20; O2SAT 94
[2017-01-31] MEDS: Piperacillin-Tazo 3.375 Gm Inj 3.375 GM in Dextrose 5% Minibag Plus 50 ML IV SCH ×2 (00:13→08:37)
[2017-01-31] MEDS: Heparin 5,000 Unit/mL Inj SUBQ SCH ×3 (00:14→17:44)
[2017-01-31] MEDS: 0.9% Sodium Chloride 1,000 ML IV SCH (00:15)
--- NOTE | 2017-01-31 02:47 | NUR ---
PO intake Patient was able to take her HS medications, crushed in applesauce. Patient assisted to upright position, given small amounts at a time. Swallows were slow, but complete, no signs of aspiration. Patient took in about 1/2 of the applesauce container. NG tube continues to deliver feeding at 45 ml/hr with Q4 hour flushes.
[2017-01-31 03:59] VITALS: BP 197/105; PULSE 73; RESP 20; O2SAT 95
[2017-01-31 04:34] VITALS: BP 189/77
[2017-01-31 06:00] LABS: BASOPHILS % (AUTO) 0.8 % (0-3); EOSINOPHILS % (AUTO) 3.5 % (0-5); MONOCYTES % (AUTO) 9.1 % (4-12); Mean Corpuscular Hemoglobin 29.5 pg (27.0-35.0); NEUTROPHILS % (AUTO) 66.4 % (40-74); Platelet Count 162 bil/L (150-400)
--- NOTE | 2017-01-31 06:24 | NUR ---
Mentation Patient was somnolent most of the night. Able to answer name and birthdate, was asking about where family members were. At one point, patient asked daughter who the boy in the room was, but there were only three females. Per GENERAL SURGEON, patient was more responsive than last night and showed no signs of agitation. Patient would smile at staff, said "thank you" a few times after care was given, but eyes remained closed. Per daughter's request, only half of the 12.5 mg HS Seroquel was given, administered dose of 6.25 mg. Frequent rounding in place, daughter was in room with patient overnight.
[2017-01-31] MEDS: CITALOPRAM 10 MG PO SCH (08:38)
[2017-01-31] MEDS: Lansoprazole 30 mg ODTablet PO SCH (08:39)
[2017-01-31] MEDS: EXELON 13.3 MG TOPICAL SCH (08:40)
--- NOTE | 2017-01-31 10:19 | PCM.PNMED ---
Subjective Date of Service January 31, 2017 Subjective Little more busy last night, did not get to much sleep so now sleeping. Daughter present. Doing better with eating, still with NG tube. Will work with speech therapy more today. Exam Vital Signs Vital Sign - Last Date Time Temp Pulse Resp B/P Pulse Ox O2 Delivery O2 Flow Rate FiO2 01/31/17 04:34 189/77 01/31/17 03:59 36.7 73 20 95 Room Air Intake and Output 01/30/17 01/30/17 01/31/17 Cumulative From/Thru 15:00 23:00 07:00 01/23/17 09:23 - 01/31/17 06:47 Intake Total 1373 ml 1533 ml 35260 ml Output Total 1350 ml 1200 ml 01528 ml Balance 23 ml 333 ml 5652 ml Intake Oral 0 ml 0 ml 0 ml IV Total 743 ml 870 ml 58669 ml Tube Feeding 630 ml 573 ml 3291 ml TPN/PPN 1364 ml Tube Irrigant 90 ml 905 ml Output Urine Total 1350 ml 1200 ml 41837 ml Gastric Drainage Total 0 ml # Bowel Movements 2 2 15 Exam sleeping this AM. EYES; joelle, eom intact HENT, adequate hydration, no active lesions CV; regular Resp; course, otherwise clear GI; non tender benign Skin; no active rash Neuro;, no new focal deficits Lab and Diagnostics Result Diagram: 01/31/17 0530 01/31/17 0530 X-Rays, CTs and MRIs CT BRAIN WITHOUT CONTRAST IMPRESSION: No acute intracranial disease process. Dictated by: Citlaly Rosa MD, PhD on 01/23/2017 at 11:35 X-RAY CHEST ONE VIEW, PORTABLE IMPRESSION: 1. Persistent left basilar radiopacities. Dictated by: Deb Arevalo M.D. on 01/24/2017 at 12:26 Assessment & Plan Traci Granados is an 86-year-old woman with past medical history significant for end-stage Parkinson disease, recurrent aspiration pneumonia, and recurrent Proteus UTI was currently under treatment for recurrent aspiration pneumonia. Hospital day #5. 1. Probable aspiration pneumonia, POA, improving -recieved 9 day s of Zosyn will stop today -I think that the UTI was the primary infection for this patient on admission -aspiration precautions (HOB > 30) 2. Probable recurrent urinary tract infection with recent Proteus infection. POA. resolved -Zosyn day9, discontinue today -Klebsiella sensitive to Zosyn 4. Progressive dysphagia, POA. -NG tube in place today - speech to work with patient to get her eating gain so hopefully we can remove the NG tube tomorrow -NG tube needs to be replaced immediately if parkinson medication due 5. Parkinson's disease, poorly controlled. Inability to take medications. POA. -We will resume via NG tube Sinemet 6. Septic encephalopathy, POA. -in retrospect patient did not meet sepsis criteria. 7. Dementia, POA, stable -We will follow clinically. 8. Hypertension, POA.stable -We will follow clinically and hold medications for now. 9. Goals of care -explained natural course of PD, recurrent aspiration PNA, appreciate further discussion with palliative care about hospice, family is opened to it. 10-Pain control -IV morphine but will reduce dose considerable 11-Altered mental status; poa, active -obviously many initial causes but now we need to make sure meds are given on time, I think the infection, dehydration have been corrected. CODE STATUS: DNR/DNI, no permanent feeding. Disposition:appreciate palliative care service tomorrow, plan to observe with abx, nutrition via NG/TPN, patient seems to be good candidate for hospice. lives at [facility], family may be requesting a new SNF GI Prophylaxis: Proton Pump Inhibitor VTE Prophylaxis: Sub-Q Heparin (Unfractionated) Resuscitation Status: DNR/DNI:Do Not Resuscitate/Intubate Diane Mazariegos MD January 31, 2017 10:19
[2017-01-31] MEDS ORDERED: Potassium Chloride 20 mEq SR Tablet PO ONE (10:25)
[2017-01-31] MEDS: 0.9% NaCl + KCl 20 mEq/L 1,000 ML IV SCH (11:13)
[2017-01-31 12:52] VITALS: BP 186/71; PULSE 67; RESP 20; O2SAT 97
--- NOTE | 2017-01-31 14:50 | DRSVH ---
PROCEDURE: X-RAY CHEST ONE VIEW, PORTABLE ([id number]) INDICATIONS: cough TECHNIQUE: One view of the chest was acquired. COMPARISON: [facility], CR, XR CHEST 1VW (PORTABLE), 01/24/2017, 10:27[facility] (PORTABLE), 01/29/2017, 6:04. [facility], CR, XR CHEST 1VW (PORT ABLE), 01/29/2017, 13:21. FINDINGS: Surgical changes and devices: Unchanged left PICC line. Enteric tube is seen with the tip projecting below the GE junction however not included on the study. Lungs and pleura: No pleural effusions or pneumothorax. Retrocardiac consolidative opacity is seen. There is also blunting of the left costophrenic angle. Hazy bibasilar opacities Mediastinum: Mediastinal contours appear normal. Heart size is normal. Bones and chest wall: No suspicious bony lesions. Overlying soft tissues appear unremarkable. IMPRESSION: Retrocardiac consolidation, as before and grossly unchanged since 01/29/17. Hazy bibasilar opacities, potentially atelectasis and/or layering small pleural effusions. Dictated by: Ino Moss M.D. on 01/31/2017 at 14:14 Approved by: Ino Moss M.D. on 01/31/2017 at 14:49
--- NOTE | 2017-01-31 16:10 | NUR ---
Skin, Intake and Activity Ulcer prevention protocol initiated for gustabo score 11, Q2 schedule continues. Reducing blanchable redness in labial and gluteal cleft. Frequent turning, changing and calmoseptine. Increasing oral intake and NG nutrition, continues at goal of 45mL/hr. Hypokalemia present, provider notified, new IVF therapy and oral supplements. Repeat labs in AM. Intermittent wakefulness and resistance with bri care, but generally does not follow commands. Family reports patient was active much of the night and have been at bedside most of the day.
[2017-01-31 20:35] VITALS: BP 190/72; PULSE 74; RESP 18; O2SAT 96
[2017-02-01] MEDS: Heparin 5,000 Unit/mL Inj SUBQ SCH ×3 (00:20→16:44)
[2017-02-01 00:24] VITALS: BP 152/72
--- NOTE | 2017-02-01 05:44 | NUR ---
mentation/diet Pt sleepy but easily arousable with repeated stimuli. No s/s of pain or discomfort. 6.25mg of Seroquel given per family's request. Pt wanted to eat when son was still here before HS. Able to eat chocolate pudding w/o difficulty. NGT residual was 60mL @ HS, 90mL at midnight, then 15mL. TF running at a goal of 45mL/hr with q4hr flushes. Incontinent of stool. lin intact draining pale yellow urine. calmoseptine applied to pt's periarea. bed alarm on for safety.
[2017-02-01] MEDS: 0.9% NaCl + KCl 20 mEq/L 1,000 ML IV SCH (05:57)
[2017-02-01 06:36] VITALS: BP 120/60; PULSE 65; RESP 20; O2SAT 97
[2017-02-01] MEDS: CITALOPRAM 10 MG PO SCH (08:00)
[2017-02-01] MEDS: Lansoprazole 30 mg ODTablet PO SCH (08:00)
[2017-02-01] MEDS: EXELON 13.3 MG TOPICAL SCH (08:00)
--- NOTE | 2017-02-01 09:05 | PCM.PNMED ---
Subjective Date of Service February 01, 2017 Subjective No new problems per nursing staff overnight. Patient not awake or active yet today, has recieved the sinamet today. NG tube in place, still working with speech. Exam Vital Signs Vital Sign - Last Date Time Temp Pulse Resp B/P Pulse Ox O2 Delivery O2 Flow Rate FiO2 02/01/17 06:36 37.7 65 20 120/60 97 Room Air Intake and Output 01/31/17 01/31/17 02/01/17 Cumulative From/Thru 15:00 23:00 07:00 01/23/17 09:23 - 02/01/17 06:59 Intake Total 640 ml 1894 ml 60783 ml Output Total 900 ml 1000 ml 95245 ml Balance -260 ml 894 ml 6286 ml Intake Oral 640 ml 113 ml 753 ml IV Total 890 ml 75649 ml Tube Feeding 776 ml 4067 ml TPN/PPN 1364 ml Tube Irrigant 115 ml 1020 ml Output Urine Total 900 ml 1000 ml 71139 ml Gastric Drainage Total 0 ml # Bowel Movements 3 2 20 Exam difficult to arouse at this time, no tremor EYES; joelle, eom intact HENT, adequate hydration, no active lesions CV; regular Resp; course, otherwise clear GI; non tender benign Skin; no active rash Neuro;, no new focal deficits Lab and Diagnostics Result Diagram: 01/31/17 0530 02/01/17 0610 X-Rays, CTs and MRIs CT BRAIN WITHOUT CONTRAST IMPRESSION: No acute intracranial disease process. Dictated by: Citlaly Rosa MD, PhD on 01/23/2017 at 11:35 X-RAY CHEST ONE VIEW, PORTABLE IMPRESSION: 1. Persistent left basilar radiopacities. Dictated by: Deb Arevalo M.D. on 01/24/2017 at 12:26 Assessment & Plan Traci Granados is an 86-year-old woman with past medical history significant for end-stage Parkinson disease, recurrent aspiration pneumonia, and recurrent Proteus UTI was currently under treatment for recurrent aspiration pneumonia. Hospital day #5. 1. Probable aspiration pneumonia, POA, improving -recieved 9 day s of Zosyn (stoped 01/31/17) -I think that the UTI was the primary infection for this patient on admission -aspiration precautions (HOB > 30) 2. Probable recurrent urinary tract infection with recent Proteus infection. POA. resolved -Zosyn day9, discontinued 01/31/17) -Klebsiella sensitive to Zosyn 4. Progressive dysphagia, POA. -NG tube in place today -NG tube needs to be replaced immediately if Parkinson medication due -today we need to see if patient can eat safely and be able to remove NG tube, if can be removed consider dc to [facility] in am, if not then will need to make alternative discharge plan, home with hospice with NG tube or another facility that can manage an NG tube, or even a peg tube 5. Parkinson's disease, poorly controlled. Inability to take medications. POA. -We will resume via NG tube Sinemet 6. Septic encephalopathy, POA. -in retrospect patient did not meet sepsis criteria. 7. Dementia, POA, stable -We will follow clinically. 8. Hypertension, POA.stable -We will follow clinically and hold medications for now. 9. Goals of care -explained natural course of PD, recurrent aspiration PNA, appreciate further discussion with palliative care about hospice, family is opened to it. 10-Pain control -IV morphine but will reduce dose considerable 11-Altered mental status; poa, active -obviously many initial causes but now we need to make sure meds are given on time, I think the infection, dehydration have been corrected. CODE STATUS: DNR/DNI, no permanent feeding. Disposition:appreciate palliative care service tomorrow, plan to observe with abx, nutrition via NG/TPN, patient seems to be good candidate for hospice. lives at [facility], family may be requesting a new SNF GI Prophylaxis: Proton Pump Inhibitor VTE Prophylaxis: Sub-Q Heparin (Unfractionated) Resuscitation Status: DNR/DNI:Do Not Resuscitate/Intubate Diane Mazariegos MD February 01, 2017 09:04
--- NOTE | 2017-02-01 09:25 | NUR ---
INGA signed Pt's spouse signed INGA. ROMAN Caballero
[2017-02-01] MEDS: 0.9% Sodium Chloride 1,000 ML IV SCH (10:32)
[2017-02-01 12:01] VITALS: BP 145/58; PULSE 74; RESP 16; O2SAT 94
--- NOTE | 2017-02-01 14:57 | NUR ---
Social Work: Readiness for d/c Data: Pt is on day 9 of hospitalization. EMR reviewed, pt discussed in rounds. MD states 1-2 more days likely with the goal of taking out the NG tube. Family has decided that they do not want to open with hospice on 02/02. Family states they want pt to go to SNF at d/c so they can have time to set up caregiving at home and to communicate with hospice about when to open in a few days. [employer] notified hospice of this and asked that they follow up with the family in 2-3 days. Plan: Pt will d/c to SNF, the goal is to have the NG tube out at d/c, then pt could return to [facility]. If NG tube is in at d/c, [facility] cannot take pt back, but [facility] and [facility] can both accept pt with the NG tube. Hospice will follow up with pt and family outpt. [employer] will continue to follow. ROMAN Caballero
--- NOTE | 2017-02-01 18:00 | NUR ---
Nutrition/Mentation Altered mentation on admission, sudden intermittent wakefulness and reactivity. PO intake is increasing with frequent encouragement. NG tube remains in place at goal and IVF infusing.
[2017-02-01 20:33] VITALS: BP 181/79; PULSE 90; RESP 24; O2SAT 96
--- NOTE | 2017-02-01 21:36 | NUR ---
NG tube pulled out Pt pulled out NGT. notified and is aware. No further orders at the moment. Pt tolerating PO medications. No s/sx of aspiration observed. Will continue to monitor.
[2017-02-02] MEDS: Heparin 5,000 Unit/mL Inj SUBQ SCH ×3 (00:36→17:33)
[2017-02-02 04:16] VITALS: BP 146/81; PULSE 61; RESP 20; O2SAT 95
--- NOTE | 2017-02-02 04:42 | NUR ---
NOC/Dobhoff Pulled out Pt pulled out dobhoff tube out. MD was notified and is aware. No further orders. No signs of aspiration observed upon PO meds administration. q2 turning and repositioning provided. No s/sx of chest pain, sob, n/v observed. Hourly rounding in effect, VSS and pt has slept most of the night.
[2017-02-02] MEDS: 0.9% Sodium Chloride 1,000 ML IV SCH (05:48)
[2017-02-02] MEDS: Lansoprazole 30 mg ODTablet PO SCH (09:09)
[2017-02-02] MEDS: CITALOPRAM 10 MG PO SCH (09:09)
[2017-02-02] MEDS: EXELON 13.3 MG TOPICAL SCH (10:24)
--- NOTE | 2017-02-02 10:24 | PCM.PALLBR ---
Palliative Brief Note Date of Service February 02, 2017 . Returned to reevaluate patient. Prior to visiting reviewed her updated records in the EMR in detail. From the palliative medicine standpoint, situation remains unchanged. Proceed as outlined previously and in case management notes. Palliative medicine will sign off at this time. Palliative Care Recommendation Summary of palliative recommendations: -Symptom management (Pain/other): adequate symptomatic control at this time. Continue per hospitalist team. -DPOA/Advanced Directives/POLST: 1. Capacity: pt no longer has capacity to make her own healthcare decisions due to advanced Parkinson's disease. Her Javi is her designated decision maker. He is making decisions with the assistance of his two adult children: son José Luis and daughter Kathy. 2. Code Status: DNR/DNI 3. POLST, at a prior hospitalization on 06/10/16 Dr. Sanders met with family and helped create a POLST that said: DNR/DNI/limited interventions, antibiotic usage okay, brief trial of artificial nutrition possible. After discussion with family on 01/26, that POLST remains accurate for the patient/family goals. They have decided not to place a PEG tube, but only use temporary NGT during this hospitalization 01/28: At times, Javi seems to understand the endpoint of her current medical situation given her progressive dysphagia and overall general deterioration. However, after considerable conversation with Palliative Care at 01/26 family meeting, he remained uneasy about the idea of transitioning to hospice and has asked medical team and Palliative Care to stop bringing this option up. 01/27: Follow-up visit: Marisa Marley, and Brooke CALIXTO from [facility] met briefly with Javi, his EULOGIO José Luis (Kathy's ) and granddaughter. 1. We are aware that overnight, Javi refused a hospice info visit, although he had agreed to it at our meeting on 01/26. He also indicated to our Palliative Care [facility] that he did not want people trying to talk to him about hospice anymore. 2. Today, Javi informs us that the family has decided against the "stomach tube" (PEG) for Traci. He is hoping that she will wake up and receive more calories with NGT in place for a few days and get strong enough to eat with hand feedings at hospital before returning to [facility]. listens supportively and encouraging the hope expressed today. 3. Dr. Onofre brought up TPN because Javi apparently has asked medical team to provide TPN for Traci as an alternate to NGT feedings. Dr. Onofre counsels Javi and family that she discussed this with Dr. Arreaga who feels that TPN will not offer the same quality of calories and nutritional value as NGT feedings. Javi says he understands that now, and has no further questions. 01/26: Family conference team meeting (FCTM): please see Initial Consult note written by Dr. Onofre 01/26 for details. Resuscitation Status Resuscitation Status: DNR/DNI:Do Not Resuscitate/Intubate/limited interventions /antibiotic usage okay/trial of artificial feeding okay Time spent today reviewing status and plans- 15 minutes Gerard Sanders MD February 02, 2017 10:24
[2017-02-02 11:45] VITALS: BP 161/83; PULSE 61; RESP 18; O2SAT 97
--- NOTE | 2017-02-02 12:05 | NUR ---
Wound Note Pressure ulcer protocol received, patient seen at bedside, somnolent on an Advanta bed with heel relief in left sidelying. Presents with blanchable sacral coccyx area secondary to incontinence and an abrasion at her sacrum which is superficial and less than 1 cm in diameter. Recommend shield wipes to periarea 2xs a day and a mepilex over her sacrum to protect, patient placed in left sidelying after assessment. Patient at high risk for skin breakdown recommend frequent repositioning. Patient has skin tears at her left elbow and forearm (POA) that are held in place appropriately with steri strips and these are nondraining. No wound care needs at this time.
--- NOTE | 2017-02-02 13:30 | NUR ---
Medication Pt very drowsy, difficult to rouse. Does open eyes to painful stimulation. This RN tried to administer medication crushed in pudding, pt clamped mouth tightly shut. This RN unable to administer Rx as ordered. Will continue to monitor, frequent rounding in place. Addendum: 02/02/17 at 1742 by OPHELIA KONG RN Approx 1500, pt became more alert and aware. Pt was opening eyes and responding to questions appropriately. Pt agreed to take 1200 Sinemet. Medications given, pt able to swallow with cueing. Call light with in reach, will continue to monitor.
--- NOTE | 2017-02-02 16:48 | NUR ---
NUTRITION FOLLOW-UP: ASSESS: 86 YO female admitted with recurrent aspiration pneumonia, UTI, volume depletion, progressive dysphagia. Patient's spouse understands the futility of her current medical situation given her progress with dysphagia and overall general deterioration; however, he would like to proceed with NG enteral feeding until family discussions in conjunction with the palliative team determine goals of care. Pt NG tube has been removed multiple times since it was placed on 01/26 and it is currently removed at this time. Pt diet has been advanced but due to pt somnolence, po intake has been limited. Pt had hospice info. visit, per case management family is open to hospice vs. potential discharge to SNF. Current goals are DNR/DNI with no permanent feeding tube. PMHx: Parkinson's disease, dementia, progressive dysphagia, HTN, aspiration pneumonia, UTI, glaucoma. DIET: Pureed with Honey Thick Liquids. PO 0-50% of melas. NUTRITION SUPPORT: Jevity 1.5 currently at 45 ML/br=3924 kcal, 66 g protein, sufficient to meet 100% nutrient needs. LABS: Reviewed. Glu 103, Ca 8.1, Alb 2.7 MEDICATIONS: Reviewed. GI symptoms / stool: BM x 1 (01/30). Skin Integrity: No issues reported. ANTHROPOMETRICS: Current Wt: 51.4 kg IBW: 59.1 kg (87% IBW). Ht from previous admit: 66 inches. ESTIMATED NEEDS (UNDERWEIGHT): Calories: 1542 - 1799 kcal (30 - 35 kcal / kg BW) Protein: 62 - 77 g protein (1.2 - 1.5 g / kg BW) Fluid: Approx. 1285 mL (25 mL / kg BW) NUTRITION DIAGNOSIS: 1) Inadequate oral intake related to inability to consume sufficient energy, as evidenced by progressive dysphagia, requirement for enteral feeding--MILDLY IMPROVING. Diet advancing per ST. NUTRITION INTERVENTION: 1.) Continue with tube feeding at goal rate, taper down accordingly pending po intake/diet advancement. Current diet provides minimal kcal/protein. 2.) Once IV fluids are stopped, recommend flush dose of 50 ml every 2 hours to provide 1345 mL (TF + flushes) free H20 per day. MONITOR/EVALUATE: Enteral feeding tolerance, Diet tolerance/advancement, labs, GI/nutrition status, overall POC (Palliative consulted for 01/31?). Follow per high nutrition risk guidelines. Addendum: 02/02/17 at [address] Please disregard above note. Note saved before completing. Note should be as follows: NUTRITION FOLLOW-UP: ASSESS: 86 YO female admitted with recurrent aspiration pneumonia, UTI, volume depletion, progressive dysphagia. Patient's spouse understands the futility of her current medical situation given her progress with dysphagia and overall general deterioration; however, he would like to proceed with NG enteral feeding until family discussions in conjunction with the palliative team determine goals of care. Pt NG tube has been removed multiple times since it was placed on 01/26 and it is currently removed at this time. Pt diet has been advanced but due to pt somnolence, po intake has been limited. Pt had hospice info. visit, per case management family is open to hospice vs. potential discharge to SNF. Current goals are DNR/DNI with no permanent feeding tube. PMHx: Parkinson's disease, dementia, progressive dysphagia, HTN, aspiration pneumonia, UTI, glaucoma. DIET: Pureed with Honey Thick Liquids. PO 0-50% of melas. LABS: Reviewed. Cr 0.44, Glu 126, Alb 2.4, PAB 11. MEDICATIONS: Reviewed. GI symptoms / stool: BM x 2 (02/02). Skin Integrity: No issues reported. ANTHROPOMETRICS: Current Wt: 53.9 kg IBW: 59.1 kg (87% IBW). Ht from previous admit: 66 inches. ESTIMATED NEEDS (UNDERWEIGHT): Calories: 1542 - 1799 kcal (30 - 35 kcal / kg BW) Protein: 62 - 77 g protein (1.2 - 1.5 g / kg BW) Fluid: Approx. 1285 mL (25 mL / kg BW) NUTRITION DIAGNOSIS: 1) Inadequate oral intake related to inability to consume sufficient energy, as evidenced by progressive dysphagia with po intake < 50% of meals and TF currently discontinued--PERSISTS. 2.) Chewing / swallowing difficulties related to disease state and mentation as evidenced by current need for mechanically altered diet texture. NUTRITION INTERVENTION: 1.) Will add Honey thick ensure to all trays. MONITOR/EVALUATE: Diet tolerance/advancement, possible restart tube feeds, labs, GI/nutrition status, overall POC. Follow per high nutrition risk guidelines.
[2017-02-02 17:58] VITALS: BP 164/98; PULSE 78; RESP 20; O2SAT 97
--- NOTE | 2017-02-02 20:27 | PCM.PNMED ---
Subjective Date of Service February 02, 2017 Subjective 86F with severe parkinson's dementia and dysphagia got admitted for aspiration pneumonia. She received several days of Zosyn for that and UTI, which is considered the main diagnosis in retrospect. She lives in [facility], . Patient declined permanent tube feeds int he past , family confirmed this today. Patient pulled her NG tube this morning, staff were able to give her most of her medications with applesauce. They were unable to get an metoprolol. She is doing better. No overnight chills or fevers. Family wants one more day here and then back to [facility]. Has been stated that as hard as it has been for him he understands that she is going to pass. However they do want her to at home, as they would like to keep her in [facility] until arrangements can be made for hospice at home. Daughter will come today and spent the night in the hospital Exam Vital Signs Vital Sign - Last Date Time Temp Pulse Resp B/P Pulse Ox O2 Delivery O2 Flow Rate FiO2 02/02/17 04:16 36.6 61 20 146/81 95 Room Air Intake and Output 02/01/17 02/01/17 02/02/17 Cumulative From/Thru 15:00 23:00 07:00 01/23/17 09:23 - 02/01/17 22:48 Intake Total 830 ml 1981 ml 36716 ml Output Total 250 ml 10228 ml Balance 830 ml 1731 ml 8847 ml Intake Oral 450 ml 1203 ml IV Total 302 ml 525 ml 89119 ml Tube Feeding 468 ml 886 ml 5421 ml TPN/PPN 1364 ml Tube Irrigant 60 ml 120 ml 1200 ml Output Urine Total 250 ml 37214 ml Gastric Drainage Total 0 ml # Bowel Movements 2 22 Exam Gen. difficult to arouse at this time, no tremor, sleeping with open mouth. Not responding to verbal. EYES; joelle, eom intact HENT, adequate hydration, no active lesions CV; regular, no S3-S4 murmurs Resp; coarse, otherwise clear GI; non tender benign Skin; no active rash Neuro;, no new focal deficits, not responding to pain Vascular: No palpable dorsalis pedis Neck: Negative for JVD IVs and Medications Medications Reviewed: Medications were reviewed in detail Lab and Diagnostics Result Diagram: 01/31/17 0530 02/01/17 0610 X-Rays, CTs and MRIs CT BRAIN WITHOUT CONTRAST IMPRESSION: No acute intracranial disease process. Dictated by: Citlaly Rosa MD, PhD on 01/23/2017 at 11:35 X-RAY CHEST ONE VIEW, PORTABLE IMPRESSION: 1. Persistent left basilar radiopacities. Dictated by: Deb Arevalo M.D. on 01/24/2017 at 12:26 Assessment & Plan Traci Granados is an 86-year-old woman with past medical history significant for end-stage Parkinson disease, recurrent aspiration pneumonia, and recurrent Proteus UTI was currently under treatment for recurrent aspiration pneumonia. Hospital day #5. 1. Probable aspiration pneumonia, POA, improving -recieved 9 day s of Zosyn (stoped 01/31/17) -UTI was the primary infection for this patient on admission -aspiration precautions (HOB > 30) 2. Probable recurrent urinary tract infection with recent Proteus infection. POA. resolved -Zosyn day9, discontinued 01/31/17) -Klebsiella sensitive to Zosyn 4. Progressive dysphagia, POA. -NG tube was discontinued as patient pulled it out -- We will continue to do by mouth med with applesauce -- Family agrees that they do not want the PEG tube to be placed 5. Parkinson's disease, poorly controlled. Inability to take medications. POA. -Continue Sinemet 6. Septic encephalopathy, POA. -in retrospect patient did not meet sepsis criteria. 7. Dementia, POA, stable -We will follow clinically. 8. Hypertension, POA.stable -We will follow clinically and hold medications for now. -- Discontinue metoprolol by mouth as she is refusing medications. Added clonidine patch 0.1 mg 9. Goals of care -explained natural course of PD, recurrent aspiration PNA, appreciate further discussion with palliative care about hospice, family is opened to it. 10-Pain control -IV morphine but will reduce dose considerable 11-Altered mental status; poa, active -obviously many initial causes but now we need to make sure meds are given on time, infection, dehydration have been corrected. CODE STATUS: DNR/DNI, no permanent feeding. Disposition:appreciate palliative care service , plan to observe with abx, nutrition via NG/TPN, patient seems to be good candidate for hospice. lives at [facility], family wants her to go to [facility] on , with a plan to open her home for hospice care soon. states that he understands that she will pass soon. Pain Evaluation: Adequate Pain Control GI Prophylaxis: Proton Pump Inhibitor VTE Prophylaxis: Sub-Q Heparin (Unfractionated) Resuscitation Status: DNR/DNI:Do Not Resuscitate/Intubate Time spent 20 min Samina Edwards DO February 02, 2017 05:34
[2017-02-02 22:25] VITALS: BP 125/65; PULSE 61; RESP 20; O2SAT 95
[2017-02-03] MEDS: Heparin 5,000 Unit/mL Inj SUBQ SCH ×2 (00:09→08:40)
[2017-02-03] MEDS: 0.9% Sodium Chloride 1,000 ML IV SCH (01:41)
--- NOTE | 2017-02-03 05:08 | NUR ---
Noc activity Pt could be conversational and responds to yes or no questions. HS meds administered with chocolate pudding, no s/sx of aspirations observed while feeding the pt. q2 turning provided, HS IVF and ABx administered as scheduled. VSS, Hourly rounding in effect and pt has slept most of the night.
[2017-02-03 05:30] VITALS: BP 172/83; PULSE 69; RESP 20; O2SAT 95
[2017-02-03] MEDS ORDERED: CLON1PAT TOPICAL (07:34)
--- NOTE | 2017-02-03 08:27 | NUR ---
Palliative care note D/A: Phone call from Samira at [facility]. She leaves message of inquiry about phone message left from pt dtr who is now indicating family would like to sign on to [facility]. Per discussion with Brooke OWENS who spoke to dtr in [facility] on 02/02/17-dtr at that time was considering return to SNF for pt. Pt spouse now in the hospital as well. Family had declined start of [facility] services originally scheduled for 02/02/17. Have referred Samira to [facility] as PC signed off case as of 02/02/17. P: Palliative care has signed off case at this time. Bell ORDONEZ, CCM
[2017-02-03] MEDS: Lansoprazole 30 mg ODTablet PO SCH (08:33)
[2017-02-03] MEDS: CITALOPRAM 10 MG PO SCH (08:38)
[2017-02-03] MEDS: EXELON 13.3 MG TOPICAL SCH (08:39)
--- NOTE | 2017-02-03 09:13 | NUR ---
MARILY - Continued Discharge Planning SW received call from pt's dtr [facility] [phone] asking to meet. SW met with pt's dtr in room to answer questions. Dtr asked if pt will be going back to [facility] or LTC and if it will be covered by Medicare. SW contacted [facility] and they stated she will be skillable for SNF at this time. MARILY updated dtr. SW will continue to follow. ROMAN Soliz Addendum: 02/03/17 at 1036 by ANAYA SALCEDO SS SW received voicemail from Hospice stating they got a call from the family yesterday and are wondering if they woudl now like to open with Hopsice at discharge. MARILY met with dtr Sierra who stated that they discussed it further and have decided not to open with Hospice yet. MARILY called Hospice [phone] to relay this info. ROMAN Soliz
--- NOTE | 2017-02-03 11:11 | PCM.DIMED ---
Discharge Instructions Date of Service February 03, 2017 Dates of Hospitalization January 23, 2017 at 12:54 Discharge Diagnosis Discharge Diagnosis Aspiration pneumonia, UTI, Progressive dysphagia, Parkinson's Dementia, HTN Diet Other (pureed diet, honey thickened liquids. meds crushed in applesauce. liquids by teaspoon, watch for swallow. go slow) Activity Other (bed bound) Call your provider Fever or Chills, Shortness of breath, Bleeding, Chest pain, Vomitting, Excessive diarrhea, Weakness (unilateral), Other Patient Instructions Patient will need wound care for her sacral ulcer Stage I vs unstageable She will need chronic lin care. Daughter is in agreement that this will be least intrusive to the patient in her current situation. Clonidine can be titrated up to control BP better in 0.1 mg increments. [facility] to follow up. Follow-up plan Patient will be [facility] by [facility] Samina Edwards DO February 03, 2017 11:11
--- NOTE | 2017-02-03 12:57 | NUR ---
Social Work: Discharge Data: Pt is on day 11 of hospitalization. EMR reviewed. Pt is medically ready to discharge today and is accepted to return to [facility]. Family signed Hospice consent but decided that they do not want to open with hospice at discharge. MARILY updated pt's daughter and Csr will arrange for BLS transport. MARILY will update family and RN when transport time is set. All updated and agreeable to plan. Assessment: Pt who would benefit from SNF, family declined hospice at discharge Plan: Pt to discharge to [facility] via BLS. MARILY will update family and RN when transport time is set. No further needs assessed. ROMAN Soliz Addendum: 02/03/17 at 1306 by ANAYA SALCEDO MARILY updated that pt will transport at 1500 via [facility]. MARILY updated UR Nurse and attending RN. ROMAN Soliz
--- NOTE | 2017-02-03 13:02 | NUR ---
Faxed orders to [facility] and placed copy in chart, arranged S transport for 1300 via [facility]. Updated CONTINUOUS DRIER HELPER
[2017-02-03 13:54] VITALS: BP 144/64; PULSE 64; RESP 18; O2SAT 96
--- NOTE | 2017-02-03 14:03 | NUR ---
discharge paperwork filled out and reviewed with [facility] admit nurse. This RN emphasized the importance of the turning schedule, admit nurse agrees.
--- NOTE | 2017-02-03 22:08 | PCM.DC.MED ---
Discharge Summary Date of Service February 03, 2017 Dates of Hospitalization Date of Hospital Admission January 23, 2017 at 12:54 Date of Discharge: February 03, 2017 Providers: Admitting Physician: Drew Eng MD Primary Care Physician: Evan Attending Physician: Drew Eng MD Diagnosis at Time of Discharge Diagnosis at Time of Discharge Aspiration pneumonia, UTI, Progressive dysphagia, Parkinson's Dementia, HTN Consultations Pt/Ot, speech, palliative care Procedures XRay, CTs & MRIs CT BRAIN WITHOUT CONTRAST IMPRESSION: No acute intracranial disease process. Dictated by: Citlaly Rosa MD, PhD on 01/23/2017 at 11:35 X-RAY CHEST ONE VIEW, PORTABLE IMPRESSION: 1. Persistent left basilar radiopacities. Dictated by: Deb Arevalo M.D. on 01/24/2017 at 12:26 Brief History History is obtained from . Patient is an 86-year-old female progressive debilitating consist disease and dementia. She has suffered progressive dysphagia and had difficulties with aspiration. She was recently admitted with an aspiration pneumonia. The patient also had a Proteus urine tract infection. Ultimately she was discharged to [facility] and has had a lot of difficulty keeping down adequate fluids. A PICC line was placed for intravenous fluid resuscitation at the care home facility. She has had a stepwise deterioration was several months. The patient has become more confused and lethargic last 2 days. No reported fevers or chills. She was brought back to the emergency room and found to have evidence of probable recurrent urinary tract infection as well as possible aspiration. She really appears to be unable to drink anything she has not had her Sinemet for a day and a half and appears to be very stiff. Initial discussion with and and Dr. Eng on admission 01/23/17 regarding code status: She did have palliative care intervention last visit ( May 3016) and her code is DNR/DNI. Today when asked if she would want a temporary tube placed for administration of oral medication such as Sinemet he declined. We spent a lot of time focusing on the importance of comfort and the high probability of . He does wish to try IV fluids and antibiotics would cover for aspiration and possible recurrent urinary tract infection overnight.We will follow clinically and hold medications for now. Patient is DNR/DNI. The patient's does want IV fluids and antibiotics. I believe that she understands the probable futility of her current medical situation given her progress with dysphagia and overall general deterioration. I believe that he is considering comfort care. She was very open to boluses of IV morphine as needed for comfort at this time. If she fails to improve overnight I believe he will accept placing her on comfort care. Hospital Course: family-/daughter consulted, confirmed code status, would like temporary NG feeding but no permanent feeding. Attempted NG insertion but failed. plan for insertion by radiology tomorrow. Attending also discussed TPN until securing NG, family agreed. Hospital Course Traci Granados is an 86-year-old woman with past medical history significant for end-stage Parkinson disease, recurrent aspiration pneumonia, and recurrent Proteus UTI was currently under treatment for recurrent aspiration pneumonia. Hospital day #5. 1. Probable aspiration pneumonia, POA, improving -recieved 9 day s of Zosyn (stoped 01/31/17) -UTI was the primary infection for this patient on admission -aspiration precautions (HOB > 30) 2. Probable recurrent urinary tract infection with recent Proteus infection. POA. resolved -Zosyn day9, discontinued 01/31/17) -Klebsiella sensitive to Zosyn 4. Progressive dysphagia, POA. -NG tube was discontinued as patient pulled it out -- We will continue to do by mouth med with applesauce -- Family agrees that they do not want the PEG tube to be placed 5. Parkinson's disease, poorly controlled. Inability to take medications. POA. -Continue Sinemet with pudding/apple sauce 6. Septic encephalopathy, POA. -in retrospect patient did not meet sepsis criteria. 7. Dementia, POA, stable -We will follow clinically. -- home meds 8. Hypertension, POA.stable -- Discontinue metoprolol by mouth as she is refusing medications. Added clonidine patch 0.1 mg, PCP may titrate it up as needed 9. Goals of care -explained natural course of PD, recurrent aspiration PNA, appreciate further discussion with palliative care about hospice, family is opened to it. -- Family has decided to not seek PEG tube placement, they would [facility] while family gets her home ready for hospice care. They are agreeable to leaving the Lin in to help with decubitus ulcer and for patient comfort. 11-Altered mental status; poa, active -obviously many initial causes but now we need to make sure meds are given on time, infection, dehydration have been corrected. CODE STATUS: DNR/DNI, no permanent feeding. Exam Vital Signs (Last) Date Time Temp Pulse Resp B/P Pulse Ox O2 Delivery O2 Flow Rate FiO2 02/03/17 10:30 Supplement Oxygen 02/03/17 05:30 36.5 69 20 172/83 95 Exam Gen. difficult to arouse at this time, no tremor, sleeping with open mouth. Not responding to verbal. EYES; joelle, eom intact HENT, adequate hydration, no active lesions CV; regular, no S3-S4 murmurs Resp; coarse, otherwise clear GI; non tender benign Skin; large area of the gluteal, gluteal cleft ulceration noted. Stage I, unstageable ulcers. Neuro;, no new focal deficits, not responding to pain Vascular: No palpable dorsalis pedis Neck: Negative for JVD Test 01/23/17 09:50 01/23/17 10:15 01/23/17 10:35 01/26/17 05:35 Hold Urine Received (Received) Urine Legionella pneumophilia Ag Negative (Negative) Troponin T < 0.010ug/L (0.0-0.011) Pro-B-Type Natriuretic Peptide 338.8pg/mL (0-738) Lactic Acid Level 1.0mmol/L (0.4-2.0) Total Bilirubin 0.4mg/dL (0.0-1.2) Aspartate Amino Transf (AST/SGOT) 32U/L (0-50) Alanine Aminotransferase (ALT/SGPT) 15U/L (0-32) Alkaline Phosphatase 92U/L (25-165) Total Protein 5.4g/dL (6.4-8.4) Test 01/27/17 06:45 01/28/17 14:39 01/31/17 05:30 02/01/17 06:10 Phosphorus Level 3.2mg/dL (2.5-4.9) Magnesium Level 1.9mg/dL (1.6-2.6) Urine Color Dark yellow (YELLOW) Urine Appearance Slightly cloudy Urine pH 5.5 (5.0-8.0) Urine Specific [place] 1.025 (1.003-1.035) Urine Protein 30mg/dL (NEG,TRACE) Urine Glucose (UA) Negativemg/dL (NEGATIVE) Urine Ketones Tracemg/dL (NEGATIVE) Urine Occult Blood Large (NEGATIVE) Urine Nitrite Negative (NEGATIVE) Urine Bilirubin Negative (NEGATIVE) Urine Urobilinogen Normalmg/dL (NORMAL) Urine Leukocyte Esterase Trace (NEGATIVE) Urine RBC >50/hpf (0-2) Urine WBC 6-10/hpf (0-5) Urine Epithelial Cells Occasional/hpf (NONE-MOD) Urine Crystals None seen (NONE SEEN) Urine Bacteria Few/hpf (NONE-FEW) Urine Hyaline Casts None/lpf (NONE) Urine Granular Casts None seen (NONE SEEN) Urine Waxy Casts None seen (NONE SEEN) Urine Red Blood Cell Casts None seen (NONE SEEN) Urine White Blood Cell Casts None seen (NONE SEEN) Urine Mucus None seen (None Seen) Urine Trichomonas None seen (NONE SEEN) Urine Yeast None (NONE SEEN) Urinalysis Comment None Urine Culture Reflexed Indicated White Blood Count 5.1th/mm3 (3.8-10.1) Red Blood Count 3.93mil/mm3 (3.90-5.20) Hemoglobin 11.6g/dL (12.0-15.6) Hematocrit 34.6% (35.0-46.0) Mean Corpuscular Volume 88.0fL (81-100) Mean Corpuscular Hemoglobin 29.5pg (27.0-35.0) Mean Corpuscular Hemoglobin Concent 33.5% (32.0-37.0) Red Cell Distribution Width 14.3% (12.3-15.4) Platelet Count 162bil/L (150-400) Neutrophils (%) (Auto) 66.4% (40-74) Lymphocytes (%) (Auto) 20.0% (14-46) Monocytes (%) (Auto) 9.1% (4-12) Eosinophils (%) (Auto) 3.5% (0-5) Basophils (%) (Auto) 0.8% (0-3) Albumin 2.4g/dL (3.4-5.0) Procalcitonin 0.07ng/mL (0.00-0.08) Thyroid Stimulating Hormone (TSH) 3.680uIU/mL (0.450-4.500) Free Thyroxine 1.18ng/dL (0.82-1.77) Sodium Level 144mEq/L (134-144) Potassium Level 3.9mEq/L (3.5-5.2) Chloride Level 111mEq/L (97-108) Carbon Dioxide Level 24mmol/L (18-29) Blood Urea Nitrogen 9mg/dL (8-27) Creatinine 0.44mg/dL (0.57-1.00) Estimat Glomerular Filtration Rate 194mL/min (>59) Glucose Level 126mg/dL (60-99) Calcium Level 8.6mg/dL (8.5-10.1) Test 02/03/17 05:00 Prealbumin 14mg/dL (20-40) Discharge Medications Discharge Medications Carbidopa/Levodopa 25-100 mg (Carbidopa/Levodopa 25-100 mg) 1 Each Tablet 2 EACH PO BID (Reported) Carbidopa/Levodopa 25-100 mg (Carbidopa/Levodopa 25-100 mg) 1 Each Tablet 1 TABLET PO DAILY (Reported) Citalopram (Citalopram) 10 Mg Tablet 5 MG PO DAILY (Reported) Clonidine 0.1 mg/day Patch (Catapres TTS-1) 1 Each Patch 1 PATCH TOPICAL Q7D Prescribed by: MARILIN RICO DO Latanoprost (Latanoprost) 2.5 Ml Drops 1 GTT BOTH_EYES HS (Reported) Melatonin/Pyridoxine (Melatonin 3 mg Tablet) 1 Each Tablet 1 EACH PO HS ( Reported) Memantine HCl (Memantine HCl) 10 Mg Tablet 10 MG PO BID (Reported) Quetiapine Fumarate (Quetiapine Fumarate) 25 Mg Tablet 12.5 MG PO HS (Reported) Rivastigmine Patch (Exelon Patch) 13.3 Mg Patch 13.3 MG TRANSDERM DAILY ( Reported) As needed Albuterol Neb Soln (Albuterol Neb Soln) 2.5 Mg/3 Ml Vial.neb 2.5 MG INHALATION QID PRN PRN For Shortness of Breath (Reported) Naproxen (Naproxen) 250 Mg Tablet 250 MG PO TID PRN PRN For Pain (Reported) Nitroglycerin (Nitro-Bid) 1 Gm Oint...g. 2 INCH TRANSDERM QID PRN PRN For HYPERtension (Reported) Polyethylene Glycol 3350 (Miralax) 17 Gm Powd.pack 17 GM PO DAILY PRN PRN For Constipation Prescribed by: CINTHIA KNIGHT MD Quetiapine Fumarate (Seroquel) 25 Mg Tablet 12.5 MG PO QID PRN PRN For Agitation (Reported) Followup Plan Follow-up plan Patient will be seen by [facility] attending at the [place] Discharge Diet: Other (pureed diet, honey thickened liquids. meds crushed in applesauce. liquids by teaspoon, watch for swallow. go slow) Discharge Activity: Other (bed bound) Patient Instructions Patient will need wound care for her sacral ulcer Stage I vs unstageable She will need chronic lin care. Daughter is in agreement that this will be least intrusive to the patient in her current situation. Clonidine can be titrated up to control BP better in 0.1 mg increments. [place] Attending is requested to follow up. Time spent 45 minutes Marilin Rico DO February 03, 2017 11:27
== END 2017-02-03 15:20 | DRG 689 ==
LOC: EDBD 09:17 → SED 09:17 → PCC 12:54 → MPC 01-24 21:31
PROVIDERS: ADMIT Hospitalist; ATTEND Hospitalist
DX: N39.0 Urinary tract infection, site not specified (principal); J69.0 Pneumonitis due to inhalation of food and vomit; G20 Parkinson's disease; F02.80 Dementia in other diseases classified elsewhere, unspecified severity, without behavioral disturbance, psychotic disturbance, mood disturbance, and anxiety; I10 Essential (primary) hypertension; R13.10 Dysphagia, unspecified; Z51.5 Encounter for palliative care; B96.1 Klebsiella pneumoniae [K. pneumoniae] as the cause of diseases classified elsewhere; Z87.891 Personal history of nicotine dependence